=== PATIENT | female | born 1950 | race Caucasian/White ===

== ENCOUNTER → 2016-11-14 | Outpatient (CLI) | payer OTHER ==
[~2016-11-14] MED LIST: ATV/2 PO; ATV1 PO; GABA-113 PO; GLIP-171 PO; HYDR-5688 PO; MRPSR15 PO; PRN10125 PO; PYRI100T4 PO; RXC5 PO; SIMV40TA2 PO; TRAM-10 PO
--- NOTE | 2016-11-14 14:37 | DIAGNOSTIC IMAGING REPORT ---
LEFT KNEE MRI HISTORY: LT KNEE PAIN COMPARISON STUDY: Left knee 07/15/2016. TECHNIQUE: Multiplanar multisequence MRI of the left knee was performed according to standard department protocol without the use of contrast. FINDINGS: Menisci: There is a flap tear at the undersurface of the body of the medial meniscus. The tiny fragment appears to extend into the inferior meniscal gutter best seen on coronal sequence image 18. The lateral meniscus is intact. Ligaments: Thickening and increased signal within the ACL. However, the fibers appear intact. This favors mucoid degeneration. There is edema surrounding the ACL which could represent a small partial tear. However, this is considered less likely. The PCL, MCL, and LCL are intact. Extensor mechanism: The quadriceps tendon and patellar ligament are intact. Articular cartilage and bone: No fracture or dislocation. Focal full-thickness cartilage defect measuring 5 mm within the medial patellar facet. Mild thinning at the median ridge of the patella. Less than 50% thinning within the medial femoral condyle. Tiny marginal osteophytes at the medial compartment of the knee. Small amount of subchondral cystic change at the medial femoral condyle posteriorly. There are few small focal full-thickness cartilage defects within the medial femoral condyle posteriorly. A peripheral 1.1 cm T2 hyperintense lesion within the lateral femoral condyle. This is consistent with a benign cartilaginous lesion. Joint effusion: Small Soft tissues: No evidence for a popliteal cyst. IMPRESSION: 1. Small flap tear at the undersurface of the body of the medial meniscus. The small fragment extending into the inferior meniscal gutter. 2. Abnormal thickening and increased T2 signal within the ACL. However, the fibers appear intact. This favors mucoid degeneration. A partial tear could also have a similar appearance but is considered less likely. 3. Small joint effusion. 4. Mild osteoarthritis as described above. Electronically signed by: Artur Morris M.D. 11/14/2016 2:35 PM Dictated Date/Time: 11/14/2016 2:04 PM
== END | disposition home or self-care (01) ==
LOC: C.MRIBC 12:58
PROVIDERS: ATTEND Orthopaedic Surgery
DX: S83.207A Unspecified tear of unspecified meniscus, current injury, left knee, initial encounter (principal); X58.XXXA Exposure to other specified factors, initial encounter

== ENCOUNTER → 2016-11-19 | Day surgery (SDC) | payer OTHER ==
[2016-11-15 15:21] LABS: BASO % 0.5 %; BASO ABS # 0.03 K/uL (0-0.2); COMPLETE YES; EOS % 2.1 %; HEMATOCRIT 39.8 % (37-47); IG% 0.2 %; LYMPH % 34.5 %; LYMPH ABS # 1.99 K/uL (1.2-3.4); MEAN CELL VOLUME 90.5 fL (80-100); MEAN CORPUSCULAR HEMOGLOBIN 31.6 pg (25-34); MEAN CORPUSCULAR HGB CONC 34.9 g/dl (32-36); MEAN PLATELET VOLUME 9.6 fL (7.4-10.4); MONO % 6.6 %; NEUT % 56.1 %; PLATELET COUNT 199 K/uL (130-400); WHITE BLOOD COUNT 5.77 K/uL (4.8-10.8)
[2016-11-15 15:36] LABS: BLOOD UREA NITROGEN 14 mg/dl (7-18); BUN/CREATININE RATIO 15.3 (10-20); CALCIUM 9.9 mg/dl (8.5-10.1); CARBON DIOXIDE 30 mmol/L (21-32); CHLORIDE 102 mmol/L (98-107); CREATININE 0.92 mg/dl (0.60-1.20); GLUCOSE 282 mg/dl (70-99); POTASSIUM 3.7 mmol/L (3.5-5.1); SODIUM 137 mmol/L (136-145)
[2016-11-18 09:37] VITALS: Ht 157.5 cm; Wt 86.4 kg
[~2016-11-19] VITALS: Ht 157.5 cm; Wt 86.4 kg
[~2016-11-19] MED LIST changes: +ATROPINE SULFATE 0.1 MG/ML 5ML SYR IV PRN; -ATV1 PO; +BUPIVACAINE 0.5 % 5 MG/1 ML PF 10ML VIAL ONE; +CEFAZOLIN 1000MG/55 ML D5W IV SCH; +DEXAMETHASONE SOD INJ 4 MG/ML VIAL ONE; +EpHEDrine SULFATE INJ 50 MG/ML AMP IV PRN; +EpINEphrine INJ 1MG/ML AMP 1 MG/ML AMP ONE; +FENTANYL CITRATE INJ 50 MCG/1 ML 2 ML VIAL ONE; -HYDR-5688 PO; +KETOROLAC TROMETHAMINE 30 MG/ML VIAL ONE; +LACTATED RINGER'S 1000ML 1,000 ML IV SCH; +LIDOCAINE HCL 2% 2 ML VIAL (20MG/ML) ONE; +MIDAZOLAM HCL 1 MG/ML 2ML VIAL ONE; -MRPSR15 PO; +ONDANSETRON INJ 2 MG/ML 2 ML VIAL IV PRN; +ONDANSETRON INJ 2 MG/ML 2 ML VIAL ONE; +OXYCODONE/ACETAMINOPHEN 5-325 TAB PO PRN; +PROPOFOL IV EMULSION 10 MG/ML 20 ML VIAL IV ONE; +ROPIVACAINE 0.5% 5 MG/ML 30 ML VIAL ONE; -RXC5 PO; +SODIUM CHLORIDE 0.9% 1000ML 1,000 ML IV SCH
--- NOTE | 2016-11-19 08:04 | History & Physical Bridge - SC ---
H&P Re-Evaluation Bridge Note: I have examined the patient, reviewed the History & Physical and in the interval since the performance of the History & Physical I have noted the following changes of clinical significance: No changes noted
--- NOTE | 2016-11-19 08:31 | [facility] Post Operative Brief Note ---
Immediate Operative Summary Operative Date Nov 19, 2016. Pre-Operative Diagnosis Left Knee Medial Meniscus Tear Post-Operative Diagnosis Same, DJD MFC Procedure(s) Performed Left Knee Arthroscopy With Partial Medial Meniscectomy Surgeon Dr Tsang Offset Press Operator Surgeon(s) Ant Khalil PA-C Estimated Blood Loss 0ml Findings ABOVE Specimens None Anesthesia LMA Complication(s) None Disposition Recovery Room / PACU
--- NOTE | 2016-11-19 08:44 | Discharge Instructions-SurgCtr ---
Discharge Instructions Date of Service Nov 19, 2016. Visit Reason for Visit: Lt Knee Current Tear Medial Cartilage &/Or Meniscu Discharge Discharge Diagnosis / Problem: SAME ABOVE Discharge Goals Goal(s): Decrease discomfort, Improve function Activity Recommendations Activity Limitations: as noted below Lifting Limitations: gradually increase as tolerated Exercise/Sports Limitations: until after follow-up appointment Shower/Bathe: tomorrow Weightbearing Status: Left weightbearing (as tolerated) Anesthesia . Post Anesthesia Instructions: If you have had General Anesthesia or IV Sedation: * Do not drive today. * Resume driving when surgeon permits. * Do not make important decisions or sign legal documents today. * Call surgeon for: 1. Temperature elevations greater than 101 degrees F. 2. Uncontrollable pain. 3. Excessive bleeding. 4. Persistent nausea and vomiting. 5. Medication intolerance (nausea, vomiting or rash). * For nausea and vomiting use only clear liquids such as: tea, soda, bouillon until nausea subsides, then gradually increase diet as tolerated. * If you have any concerns or questions, call your surgeon's office. If physician is unavailable and it is an emergency, call 911 or go to the nearest emergency room. . Instructions / Follow-Up Instructions / Follow-Up MEDICATIONS: * Resume previous medications unless instructed otherwise by your surgeon. * Always take pain medication on a full stomach or with food to avoid upset stomach. * Do not drink alcohol or drive while taking narcotics. * Ibuprofen or Tylenol may be taken if narcotic not needed. SPECIAL CARE INSTRUCTIONS: __ None _X_ Keep extremity elevated and iced x 48 hours; apply ice 20-30 minutes 8-10 times/day. May remove at night. __ Crutches __ May discard when able __ Brace/Post-op shoe __ 24 hrs/day __ Remove at night _X_ Dressing __ Maintain until seen in office, may shower with plastic over site _X_ Remove dressings in 24-48 hours and then may shower _X_ Cover incisions with band-aids after showering __ Do not remove steri-strips Call physician if chills or temperature rises above 102 degrees or pain unrelieved by prescribed pain medications. Office [phone] Diet Recommendations Home Diet: resume previous diet Procedures Procedures Performed: Left Knee Arthroscopy With Partial Medial Meniscectomy Pending Studies Studies pending at discharge: no Medical Emergencies . Who to Call and When: Medical Emergencies: If at any time you feel your situation is an emergency, please call 911 immediately. . Non-Emergent Contact Non-Emergency issues call your: Primary Care Provider . . "Provider Documentation" section prepared by Triston Khalil. .
--- NOTE | 2016-11-19 08:54 | OPERATIVE REPORT ---
DATE OF OPERATION: 11/19/2016 PREOPERATIVE DIAGNOSIS: Medial meniscus tear left knee. POSTOPERATIVE DIAGNOSES: 1. Medial meniscus, left knee. 2. 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 PROCEDURE: 1. Left knee arthroscopy. 2. Partial medial meniscectomy. 3. Debridement medial femoral condyle. SURGEON: Dr. Tsang. IP COUNSEL: Triston Khalil PA-C. ANESTHESIOLOGIST: Dr. Laurent ANESTHESIA: LMA. DRAINS: None. COMPLICATIONS: None. CONDITION: The patient tolerated the procedure well and returned to the recovery room in apparent satisfactory condition. INDICATIONS FOR SURGERY: Elsy is a 66-year-old female who has had increasing pain and discomfort, left knee consistent with medial meniscus tear. Went over treatment options. She has failed conservative care and elected to go ahead and proceed with surgery. Procedure, expected outcomes and side effects were all explained in detail. PROCEDURE: The patient was taken to the OR at which time she was placed supine on the operating table, put to sleep by the anesthesia department. Examination of left knee was performed. Ligamentous munoz stable. Went ahead and prepped and draped in usual sterile fashion. We began arthroscopic examination in the anteromedial and anterolateral portals. Immediately found a flap tear of the posterior horn of the medial meniscus. We came in with upbiting scissors and full range resector and trimmed it back to a stable rim. The ACL and lateral compartment were in good shape. The patellofemoral joint looked good. She had a lesion on the femoral condyle on the very, very extension surface had grade 3 lesion. Debridement was done here it was probably about 2-3 mm x 3 mm in size. This was debrided. Remaining examination of the knee joint was unremarkable. The knee was copiously irrigated. All cannulas were removed. 30 mL ropivacaine with 10 mg of Toradol, 1 mL epinephrine was placed in the knee joint. Placed a sterile dressing of Xeroform, 4 x 4, ABD, Sof-Rol, and Bernabe bandage and returned back to recovery room in apparent satisfactory condition. SURGICAL FINDINGS: 1. A posterior horn medial meniscus tear. 2. Chondral lesion on the very front extension surface about 3 x 3 mm in size, grade 3 lesion. I attest to the content of the Intraoperative Record and any orders documented therein. Any exception s are noted below.
[2016-11-19] MEDS: FENTANYL CITRATE INJ 50 MCG/1 ML 2 ML VIAL IV PRN ×3 (09:19→09:37)
--- NOTE | 2016-11-19 09:37 | Anesthesia Progress Nt - [facility] ---
Anesthesia Post Op Note Date & Time Nov 19, 2016 at 09:37 Vital Signs Pain Intensity: 2 Vital Signs Past 12 Hours Date Time Temp Pulse Resp B/P (MAP) Pulse Ox O2 Delivery O2 Flow Rate FiO2 11/19/16 08:45 96 15 11/19/16 08:45 96 15 134/86 98 11/19/16 08:42 36.4 92 16 151/81 98 Mask 6 11/19/16 08:40 102 151/81 98 11/19/16 08:40 102 11/19/16 07:08 36.7 90 16 153/84 (107) 97 Room Air Notes Mental Status: alert / awake / arousable, participated in evaluation Pt Amnestic to Procedure: Yes Nausea / Vomiting: adequately controlled Pain: adequately controlled Airway Patency, RR, SpO2: stable & adequate BP & HR: stable & adequate Hydration State: stable & adequate Anesthetic Complications: no major complications apparent
[2016-11-19 09:53] VITALS: TEMP 36.7
[2016-11-19 10:19] VITALS: BP 127/79; PULSE 83; O2SAT 97
== END | disposition home or self-care (01) ==
LOC: X.SURG 06:46
PROVIDERS: ATTEND Orthopaedic Surgery
DX: S83.242A Other tear of medial meniscus, current injury, left knee, initial encounter (principal); M25.862 Other specified joint disorders, left knee; E11.9 Type 2 diabetes mellitus without complications; Z82.3 Family history of stroke; I10 Essential (primary) hypertension; X58.XXXA Exposure to other specified factors, initial encounter

== ENCOUNTER 2024-09-23 15:18 | Inpatient (IN) ==
--- NOTE | 2024-09-23 16:02 | Emergency Department Note ---
Impression & Plan Urinary tract infection, Complicated UTI (urinary tract infection), Pleural effusion, Generalized weakness ED Provider Note NAME: MIRA VITAL AGE: 74 SEX: F : 1950 ARRIVES VIA: Walk-In INFORMANT: Patient, ED PROVIDER(S): Scott Oh DO CHIEF COMPLAINT: Weakness HPI: The patient is a 74-year-old female who presented to the emergency department for an evaluation of generalized weakness. The patient spent the last month being treated for sepsis. She was diagnosed with sepsis in [facility] when she was her vacationing. She had positive cultures for Proteus. She was treated with ertapenem. She did finish her course of antibiotics. She is currently on no antibiotics. The patient states today she started feeling worse started having generalized weakness. She denies having any headache. She denies having any abdominal pain or chest pain. She denies having any lower extremity swelling or pain. She denies any weakness. She has had decreased urine output. She is also suffered from acute kidney injury when she was in the hospital. She also spent some time at her daughters in [place] while she was recovering after the [facility] visit but she has been back in [place] since last week. ROS: See above HPI for pertinent positives & negatives. A total of 10 systems reviewed and were otherwise negative. PAST MEDICAL HISTORY: See Below PAST SURGICAL HISTORY: See Below FAMILY HISTORY: See Below SOCIAL HISTORY: See Below HOME MEDICATIONS: See Below ALLERGIES: See Below VITALS: See Below PHYSICAL EXAMINATION: GENERAL: Patient is awake alert in no acute distress patient is resting comfortably and showing no signs of anxiety EYES: The conjunctivae are clear. The pupils are round and reactive. EARS, NOSE, MOUTH AND THROAT: The nose is without any evidence of any deformity. NECK: The neck is nontender and supple. RESPIRATORY: Normal respiratory effort is noted there is no evidence of wheezing rhonchi or rales CARDIOVASCULAR: Regular rate and rhythm noted there no murmurs rubs or gallops normal S1 normal S2. GASTROINTESTINAL: The abdomen is soft. Abdomen is nontender. MUSCULOSKELETAL/EXTREMITIES: There is no evidence of gross deformity full range of motion is noted in the hips and shoulders. SKIN: There is no obvious evidence of any rash. There are no petechiae, pallor or cyanosis noted. NEUROLOGIC: Patient is awake alert and oriented x3. Strength is symmetric. The patient is able to hold each leg off the bed for greater than 5 seconds. MEDICAL DECISION MAKING: The patient is a 74-year-old female who presented to the emergency department for an evaluation of generalized weakness. The patient was recently diagnosed with sepsis. The patient was on IV antibiotics for Proteus infection up until 3 days ago. The patient presents to our emergency department today because of not feeling well. I discussed the patient's laboratory and radiographic studies with her. Laboratory studies as well as vital signs were reassuring but the patient was found have signs of urinary tract infection. She also has an abnormal chest x-ray. Given her recent episode of sepsis I do not feel the patient would be a good candidate for outpatient management. For this reason I discussed her condition with the on-call [facility] hospitalist. I did discuss the patient's laboratory and radiographic studies with her daughter as well. Triage Nursing notes reviewed. Prior medical records reviewed Vital Signs: reviewed and remarkable for no significant abnormalities Differential diagnosis: Infection, dehydration, metabolic abnormality, hypo/hyperglycemia, electrolyte disturbance, anemia, hypoxia, cardiac sources, intracerebral event, toxicologic, neurologic, as well as other pathologies. ER treatment provided: See below Diagnostics interpreted by me: ECG: EKG was obtained in the emergency department. My interpretation is normal sinus rhythm at 73 bpm. There was no ectopy. Nonspecific T wave abnormalities were noted. QTc was 414 ms. Cardiac Monitoring: An order was placed for continuous cardiac monitoring. The monitor shows a rate of 66 bpm with sinus rhythm. Laboratory studies: As stated above and show below. Imaging studies: See below. Radiographic imaging was reviewed by myself Consultation(s): I discussed this case with Dr. Kasper who is on-call for the [facility] group. Past Med/Surg History Problem List (Updated 09/23/24 @ 22:07 by Scott Oh DO) Generalized weakness (Acute) Pleural effusion (Acute) Urinary tract infection (Acute) Complicated UTI (urinary tract infection) (Acute) Lumbar stenosis with neurogenic claudication Social History Smoking Status: Never smoker Preferred Language: Barbadian Feels Safe at Home: Yes Allergies Allergies Allergy/AdvReac Type Severity Reaction Status Date / Time metformin AdvReac Intermediate Diarrhea Verified 09/23/24 18:09 Home Meds Home Medications Medication Instructions Recorded Confirmed insulin glargine 100 unit/mL (3 15 unit subcut HS 09/23/24 09/23/24 mL) subcutaneous pen (Lantus Solostar U-100 Insulin) scopolamine base 1 mg over 3 days 1 mg transdermal .Q3DAYS PRN 09/23/24 09/23/24 transdermal patch TRAVELING simvastatin 40 mg tablet 40 mg PO HS 09/23/24 09/23/24 trazodone 50 mg tablet 50 mg PO HS 09/23/24 09/23/24 Results & Data (ED) Vital Signs Vital Signs - 24 hr 09/23/24 15:20 09/23/24 16:30 09/23/24 16:48 Temperature 36.5 C Temperature Source Oral Pulse Rate 79 Pulse Rate [Apical] 74 Pulse Rate from SpO2 Sensor Respiratory Rate 20 18 Respiratory Effort / Characteristics Non-Labored Spontaneous Non-Labored Spontaneous Non-Labored Spontaneous Respiratory Depth Normal Normal Normal Respiratory Pattern Regular Blood Pressure 165/69 H Blood Pressure [Right Arm] 162/88 H Blood Pressure Mean 101 Blood Pressure Mean [Right Arm] 112 Pulse Oximetry 98 99 Oxygen Delivery Method Room Air Room Air Sepsis Recent Fever Within 48 Hours No Sepsis New/Unexplained Change in Mental Status N/A Sepsis Action Taken by Nursing No Action Required 09/23/24 17:45 09/23/24 17:51 09/23/24 18:00 Temperature Temperature Source Pulse Rate 70 61 Pulse Rate [Apical] Pulse Rate from SpO2 Sensor Respiratory Rate 18 Respiratory Effort / Characteristics Respiratory Depth Respiratory Pattern Blood Pressure 162/93 H 162/88 H Blood Pressure [Right Arm] Blood Pressure Mean 112 143 Blood Pressure Mean [Right Arm] Pulse Oximetry 97 Oxygen Delivery Method Sepsis Recent Fever Within 48 Hours Sepsis New/Unexplained Change in Mental Status Sepsis Action Taken by Nursing 09/23/24 18:12 09/23/24 19:00 Temperature Temperature Source Pulse Rate 66 69 Pulse Rate [Apical] Pulse Rate from SpO2 Sensor 66 Respiratory Rate 17 20 Respiratory Effort / Characteristics Respiratory Depth Respiratory Pattern Blood Pressure 158/80 H Blood Pressure [Right Arm] Blood Pressure Mean 93 Blood Pressure Mean [Right Arm] Pulse Oximetry 97 96 Oxygen Delivery Method Sepsis Recent Fever Within 48 Hours Sepsis New/Unexplained Change in Mental Status Sepsis Action Taken by Usp Medications Current Medication List: was personally reviewed by me Laboratory Data Attestation: I reviewed the patient's lab results. 09/23/24 15:38 09/23/24 15:38 Lab Results 09/23/24 09/23/24 Range/Units 15:38 16:53 WBC 9.65 (4.8-10.8) K/ul RBC 3.34 L (4.20-5.40) M/uL Hgb 9.5 L (12.0-16.0) g/dl Hct 30.4 L (37.0-47.0) % MCV 91.0 (80.0-100.0) fL MCH 28.4 (25.0-34.0) pg MCHC 31.3 L (32.0-36.0) g/dL RDW Std Deviation 46.2 (36.4-46.3) fL RDW Coeff of Marek 14.0 (11.5-14.5) % Plt Count 243 (130-400) K/uL MPV 9.4 (9.4-12.4) fL Immature Gran % (Auto) 0.5 % Neut % (Auto) 88.3 % Lymph % (Auto) 8.1 % Edgar % (Auto) 2.7 % Eos % (Auto) 0.0 % Baso % (Auto) 0.4 % Neut # (Auto) 8.52 H (1.40-6.50) K/uL Lymph # (Auto) 0.78 L (1.20-3.40) K/uL Edgar # (Auto) 0.26 (0.11-0.59) K/uL Eos # (Auto) 0.00 (0.00-0.50) K/uL Baso # (Auto) 0.04 (0.00-0.20) K/uL Immature Gran # (Auto) 0.05 (0.01-0.20) K/uL PT 11.2 (9.0-12.0) Seconds INR 1.0 (0.9-1.1) APTT 26 (21-31) Seconds PTT Ratio 1.0 VBG pH 7.36 (7.36-7.41) VBG pCO2 43 (38-50) mmHg VBG pO2 25 mmHg VBG HCO3 24 mmol/L VBG O2 Saturation < 60.0 % VBG Base Excess -1.3 mEq/L Sodium 142 (136-145) mmol/L Potassium 3.9 (3.5-5.1) mmol/L Chloride 111 H (98-107) mmol/L Carbon Dioxide 25 (21-32) mmol/L Anion Gap 6 (3-11) BUN 16 (6-23) mg/dl Creatinine 1.23 H (0.6-1.2) mg/dl Est Cr Clr Drug Dosing 35.4 ml/min eGFR 46.11 BUN/Creatinine Ratio 13.0 (10-20) Glucose 77 (70-99(Fasting)) mg/dl Lactate 0.9 (0.4-2.0) mmol/L Calcium 9.2 (8.6-10.3) mg/dl Magnesium 2.1 (1.7-2.4) mg/dl Total Bilirubin 0.5 (0.2-1.0) mg/dl Direct Bilirubin 0.1 (0-0.2) mg/dl AST 17 (13-39) U/L ALT 6 L (7-52) U/L Alkaline Phosphatase 87 (34-104) U/L Troponin I High Sens 7.6 (0-14) pg/ml Total Protein 7.5 (6.0-8.3) gm/dl Albumin 3.2 L (3.4-5.0) gm/dl Procalcitonin 0.08 (0-0.5) ng/ml Administered Medications Discontinued Medications Sodium Chloride (Nss) 1,000 mls @ 999 mls/hr IV .Q1H1M ONE Stop: 09/23/24 16:57 Last Infusion: 09/23/24 18:05 Dose: Infused Documented By: Admin: 09/23/24 16:22 Dose: 999 mls/hr Documented By: GARFIELD Ertapenem (Invanz 1000mg) 1,000 mg in 10 mls @ 2 mls/min IV NOW STA Stop: 09/23/24 18:50 Last Admin: 09/23/24 19:33 Dose: 2 mls/min Documented By: CASSANDRA Imaging Data Attestation: I personally reviewed and interpreted this imaging study as follows: My Impression: 1 view chest x-ray was obtained in the emergency department. My interpretation is possible infiltrate at the right base, final report below. CT the brain was obtained in the emergency department. My interpretation is no intracranial hemorrhage or mass effect, final report below. Radiologist's Impression: Chest X-Ray 09/23/24 15:57 Chest radiograph, one view History: Sepsis Comparison: 08/13/2015 Findings: Single AP view of the chest performed. Small bilateral pleural effusions. Streaky bibasilar opacity favoring atelectasis. There is also retrocardiac opacity. No pneumothorax. The cardiomediastinal silhouette is within normal limits. Increased prominence of the pulmonary vascularity. No evidence for lymphadenopathy. No visualized bony or soft tissue abnormality. Impression: Small pleural effusion are new from prior. Retrocardiac atelectasis versus consolidation. Electronically signed by Dat Huggins 09-23-2024 5:[address] 09/23/24 15:57 CT HEAD: HISTORY: Headaches TECHNIQUE: Noncontrast CT examination of the head is performed. Coronal and sagittal reformats were created. COMPARISON: None FINDINGS: There is no evidence of intracranial hemorrhage, focal mass effect or midline shift. No fluid collection is identified. The ventricular system is midline and symmetric. No evidence of acute major vascular territory infarction. Age-related involutional changes of the brain and chronic white matter ischemic changes. Partially empty sella. No calvarial fracture is identified. The paranasal sinuses and mastoids are well aerated. IMPRESSION: No acute intracranial process identified. Chronic findings as above. Electronically signed by Lamont Medley 09-23-2024 5:57 PM Discharge Plan Visit Data Chief Complaint: Weakness Stated Complaint: UNWELL,WEAK,NIGHT SWEATS,FALL THIS MORNING ED Provider: Scott Oh Discharge Problem: Urinary tract infection, Complicated UTI (urinary tract infection), Pleural effusion, Generalized weakness Patient Disposition: Being Evaluated by Hospitalist Condition: Fair Discharge Instructions Interventions: ED Discharge Assessment Last Done: 09/23/24 20:39
[2024-09-23 16:17] LABS: Hematocrit (blood only) 30.4 % (37.0-47.0); Hemoglobin 9.5 g/dl (12.0-16.0); Immature Granulocytes # (auto) 0.05 K/uL (0.01-0.20); Immature Granulocytes % (auto) 0.5 %; Mean Corpuscular Hemoglobin 28.4 pg (25.0-34.0); Mean Corpuscular Volume 91.0 fL (80.0-100.0); Platelet Count 243 K/uL (130-400); RDW Standard Deviation 46.2 fL (36.4-46.3); Red Blood Count 3.34 M/uL (4.20-5.40); White Blood Count 9.65 K/ul (4.8-10.8)
[2024-09-23] MEDS: SODIUM CHLORIDE 0.9% 1,000 ML IV ONE (16:22)
[2024-09-23 16:34] LABS: Alanine Aminotransferase 6.0 U/L (7-52); Alkaline Phosphatase 87.0 U/L (34-104); Anion Gap 6.0 (3-11); Bilirubin,Total 0.5 mg/dl (0.2-1.0); Blood Urea Nitrogen 16.0 mg/dl (6-23); Calcium 9.2 mg/dl (8.6-10.3); Carbon Dioxide 25.0 mmol/L (21-32); Chloride 111.0 mmol/L (98-107); Creatinine Clr Calc Pharmacy 35.4 ml/min; Glucose 77.0 mg/dl (70-99(Fasting)); Magnesium 2.1 mg/dl (1.7-2.4); Potassium 3.9 mmol/L (3.5-5.1); Sodium 142.0 mmol/L (136-145); Total Protein 7.5 gm/dl (6.0-8.3)
[2024-09-23 16:44] LABS: INR 1.0 (0.9-1.1); Partial Thromboplastin Time 26 Seconds (21-31); Prothrombin Time 11.2 Seconds (9.0-12.0)
[2024-09-23 17:03] LABS: Base Excess VBG -1.3 mEq/L; HCO3 VBG 24 mmol/L; Oxygen Saturation VBG < 60.0 %; PCO2 VBG 43 mmHg (38-50); PO2 VBG 25 mmHg; pH VBG 7.36 (7.36-7.41)
--- NOTE | 2024-09-23 17:17 | XRay Report ---
Chest radiograph, one view History: Sepsis Comparison: 08/13/2015 Findings: Single AP view of the chest performed. Small bilateral pleural effusions. Streaky bibasilar opacity favoring atelectasis. There is also retrocardiac opacity. No pneumothorax. The cardiomediastinal silhouette is within normal limits. Increased prominence of the pulmonary vascularity. No evidence for lymphadenopathy. No visualized bony or soft tissue abnormality. Impression: Small pleural effusion are new from prior. Retrocardiac atelectasis versus consolidation. Electronically signed by Dat Huggins 09-23-2024 5:17 PM
--- NOTE | 2024-09-23 17:57 | CT Scan Report ---
CT HEAD: HISTORY: Headaches TECHNIQUE: Noncontrast CT examination of the head is performed. Coronal and sagittal reformats were created. COMPARISON: None FINDINGS: There is no evidence of intracranial hemorrhage, focal mass effect or midline shift. No fluid collection is identified. The ventricular system is midline and symmetric. No evidence of acute major vascular territory infarction. Age-related involutional changes of the brain and chronic white matter ischemic changes. Partially empty sella. No calvarial fracture is identified. The paranasal sinuses and mastoids are well aerated. IMPRESSION: No acute intracranial process identified. Chronic findings as above. Electronically signed by Lamont Medley 09-23-2024 5:57 PM
[2024-09-23 18:33] LABS: Appearance Urine Turbid (Clear); Bacteria Urine Automated None Seen (None Seen); Glucose Urine UA Negative (Negative); WBC Urine Automated >50 /hpf (0-5)
[2024-09-23] MEDS: ERTAPENEM 1000MG 1,000 MG/10 ML SYR IV STA (19:33)
[2024-09-23] MEDS ORDERED: LABETALOL HCL IV 5 MG/ML 20ML IV PRN (19:42)
--- NOTE | 2024-09-23 19:43 | History & Physical Report ---
Date of Service September 23, 2024 Assessment & Plan (1) Complicated UTI (urinary tract infection): Plan Progressive weakness Rule out blood infection Complicated UTI Patient was recently admitted for bacteremia and UTI, presents with progressive weakness since completion of antibiotic therapy. Patient reports night sweats. UA suggestive of UTI,CXR suggestive of bilateral pleural effusion and consolidation. CT head with no acute finding. Follow admitting blood and urine culture. Continue ertapenem. Add probiotic. Will get BNP, echo to rule out endocarditis if blood culture is positive, we will do CT chest to characterize bilateral pleural effusion. Monitor labs, continue with telemetry. T2DM: Sliding scale insulin. Dyslipidemia: Continue home simvastatin Insomnia: Continue home trazodone Hypertension: Her lisinopril hydrochlorothiazide was recently stopped likely due to low blood pressure from sepsis during her last hospitalization at [place]. will continue with as needed blood pressure medication for now, if blood pressure continues to be elevated, she needs to be started on long-term BP meds. DVT prophylaxis: Heparin subcu Full code History of Present Illness Chief Complaint: Progressive weakness Primary Care Provider: Jackie Shine DO 74-year-old lady with PMH of T2DM, HLD, CIERA, HTN presents to the ED with complaint of progressive weakness since last 5 to 6 days. Of note, she was recently vacationing in [place] where she ended up being admitted in the hospital end of July and noted to have Proteus mirabilis infection in the urine and blood, was started on Rocephin, patient was not improving much, later on culture grew Klebsiella and she was put on ertapenem. She completed ertapenem course about 5 to 6 days ago. After completion of the antibiotic course, she started feeling weakness which was progressively worsening, she started having night sweats and feeling not right. She denies fever though, denies pain and burning while passing urine, denies nausea/vomiting/diarrhea/belly pain/sore throat/cough/Shortness of breath/skin rash or wound. She reports appetite slightly down. She also states that her ankles/feet are swollen since admission at [place]. Her lisinopril HCTZ was dc'd after that admission. Patient denies smoking/using alcohol/recreational drugs. Medications reviewed with the patient at bedside. Full code Plan of care discussed with the patient in detail at bedside. Allergies Allergy/AdvReac Type Severity Reaction Status Date / Time metformin AdvReac Intermediate Diarrhea Verified 09/23/24 18:09 Home Medications Medication Instructions Recorded Confirmed Type insulin glargine 100 unit/mL (3 15 unit subcut HS 09/23/24 09/23/24 History mL) subcutaneous pen (Lantus Solostar U-100 Insulin) scopolamine base 1 mg over 3 days 1 mg transdermal .Q3DAYS PRN 09/23/24 09/23/24 History transdermal patch TRAVELING simvastatin 40 mg tablet 40 mg PO HS 09/23/24 09/23/24 History trazodone 50 mg tablet 50 mg PO HS 09/23/24 09/23/24 History Past Med/Surg History Problem List Complicated UTI (urinary tract infection) (Acute) Lumbar stenosis with neurogenic claudication Social History Smoking Status: Never smoker Preferred Language: Nepali Feels Safe at Home: Yes Review of Systems Review of Systems: negative otherwise mentioned in HPI. Physical Exam Physical Exam: GENERAL: Alert and oriented x3. NAD, on RA. HEENT: No pallor, no icterus. Pupils equal, round and reactive to light. Oral mucosa moist. NECK: No JVD, no neck masses. HEART: S1 and S2 heard. Regular rate and rhythm. No murmur, no gallop. RESPIRATORY SYSTEM: Normal AP diameter. No accessory muscle use. No wheezing, no crackles. ABDOMEN: Soft, bowel sounds present, nontender, no distention. CENTRAL NERVOUS SYSTEM: No facial droop. Speech is clear. Obeys simple commands. Moves extremities. EXTREMITIES: No edema, no erythema seen. 1+ ble ankle edema. Results & Data Results & Data Vital Signs (Past 12 Hours) Vital Signs Temp Pulse Pulse Resp BP BP Pulse Ox 09/23/24 18:12 66 17 97 09/23/24 18:00 162/88 H 09/23/24 17:51 61 09/23/24 17:45 70 18 162/93 H 97 09/23/24 16:30 74 18 162/88 H 99 09/23/24 15:20 36.5 C 79 20 165/69 H 98 O2 Del Method 09/23/24 18:12 09/23/24 18:00 06/26/25 17:51 09/23/24 17:45 09/23/24 16:30 Room Air 09/23/24 15:20 Room Air Code Status & VTE Plan VTE Prophylaxis Plan VTE Prophylaxis will be ordered: Yes
--- NOTE | 2024-09-23 20:42 | CT Scan Report ---
Exam(s): CT CHEST Without Contrast EXAM: CT Chest Without Intravenous Contrast CLINICAL HISTORY: Reason for exam: pna eval. TECHNIQUE: Axial computed tomography images of the chest without intravenous contrast. CTDI is 16.63 mGy and DLP is 536.98 mGy-cm. Automated exposure control was utilized for the study. A dose lowering technique was utilized adhering to the principles of ALARA. COMPARISON: None FINDINGS: Lungs: Dependent atelectasis bilaterally. Patchy densities in right- pxdbirs-atep-wscg upper lobes may represent infectious/inflammatory process. Calcified granuloma in the right lower lobe. No mass. Pleural space: Moderate bilateral pleural effusions. No pneumothorax. Heart: Trace pericardial fluid. No cardiomegaly. No significant coronary artery calcifications. Mediastinum: Calcified mediastinal and right hilar lymph nodes. Bones/joints: Degenerative changes of the spine. No acute fracture. Soft tissues: Body wall edema. Vasculature: Unremarkable. No thoracic aortic aneurysm. Lymph nodes: See above. Spleen: Calcified granuloma in the spleen. IMPRESSION: 1. Dependent atelectasis bilaterally. Patchy densities in right-greater- than-left upper lobes may represent infectious/inflammatory process. 2. Moderate bilateral pleural effusions. Electronically signed by: Messi Hannah M.D. 09/23/24 20:40 PM
[2024-09-23] MEDS ORDERED: GLUCOSE 40% GEL 15 GM TUBE PO PRN (21:00)
[2024-09-23] MEDS ORDERED: GLUCOSE 10 TAB/TUBE PO PRN (21:00)
[2024-09-23] MEDS ORDERED: PHARMACY GLYCEMIC MGMT CONSULT PRN (21:00)
[2024-09-23] MEDS ORDERED: GLUCAGON FOR INJ 1 MG VIAL SQ PRN (21:00)
[2024-09-23] MEDS ORDERED: CARBOHYDRATES FOR HYPOGLYCEMIA PO PRN (21:00)
[2024-09-23] MEDS: INSULIN ASPART PER UNIT CHARGE SC SCH (22:09)
[2024-09-23] MEDS: SIMVASTATIN 40 MG TAB PO SCH (22:18)
[2024-09-23] MEDS: HEPARIN SOD 5,000 UNIT/0.5 ML VIAL SQ SCH (22:30)
[2024-09-23] MEDS: LANTUS PER UNIT CHARGE SC SCH (22:31)
[2024-09-24 06:28] LABS: Hematocrit (blood only) 26.5 % (37.0-47.0); Hemoglobin 8.3 g/dl (12.0-16.0); Mean Corpuscular Hemoglobin 28.5 pg (25.0-34.0); Mean Corpuscular Volume 91.1 fL (80.0-100.0); Platelet Count 227 K/uL (130-400); RDW Standard Deviation 47.2 fL (36.4-46.3); Red Blood Count 2.91 M/uL (4.20-5.40); White Blood Count 8.98 K/ul (4.8-10.8)
[2024-09-24] MEDS: DEXTROSE 50% 50 ML SYRINGE IV PRN (06:54)
[2024-09-24 07:00] LABS: Anion Gap 5.0 (3-11); Blood Urea Nitrogen 17.0 mg/dl (6-23); Calcium 8.4 mg/dl (8.6-10.3); Carbon Dioxide 24.0 mmol/L (21-32); Chloride 113.0 mmol/L (98-107); Creatinine Clr Calc Pharmacy 36.5 ml/min; Glucose 29.0 mg/dl (70-99(Fasting)); Potassium 3.8 mmol/L (3.5-5.1); Sodium 142.0 mmol/L (136-145)
[2024-09-24] MEDS: ADVANCED PROBIOTIC 625 MG CAPSULE PO SCH (09:17)
[2024-09-24] MEDS: FUROSEMIDE 40 MG/4 ML VIAL IV SCH (14:56)
--- NOTE | 2024-09-24 15:33 | Pharmacy Report ---
Pharmacy Glycemic Short Note 2 - Date of Service September 24, 2024 - Glycemic Short BSG Results (Last 24 hours): 09/23/24 09/23/24 09/24/24 15:38 21:16 05:39 Glucose 77 29 L* POC Glucose 76 09/24/24 09/24/24 09/24/24 06:49 07:11 11:17 Glucose POC Glucose 32 L* 105 H 82 OUTPATIENT ANTIDIABETIC REGIMEN: * Lantus 15 units SQ HS * HbA1c pending (09/25/24) ASSESSMENT: * Elsy is a 74 year old female admitted with weakness/UTI and a history fo insulin dependent type 2 diabetes mellitus. Pharmacy has been consulted to assist with glycemic management while inpatient. * BSGs below goal range on admission, home basal insulin dosage given overnight, severe hypoglycemia noted overnight (patient clammy, diaphoretic and shaky), treated with 25gm D50W, BSGs rebounded. Will hold basal insulin for now and add overnight checks to monitor for hypoglycemia. * NovoLog at a weight based stress of 2, unable to assess at this time since no insulin given and minimal PO intake. Looser goal range due to hypoglycemia PLAN FOR INPATIENT GLYCEMIC CONTROL: * Hold outpatient oral diabetes medications * Basal insulin * Hold * Bolus insulin * NovoLog per scale ACHS or Q6hrs while NPO * Goal Range: Low 120 mg/dL - High 160 mg/dL * Correction Factor: 35 mg/dL/unit * Nutritional / Prandial insulin per carb ratio of 1 unit per 11 grams CHO consumed
--- NOTE | 2024-09-24 15:52 | Hospitalist Progress Note ---
Date of Service September 24, 2024 Assessment & Plan (1) Complicated UTI (urinary tract infection): Plan Progressive weakness/deconditioning Rule out bacteremia Recent complicated UTI/sepsis Rule out urinary tract infection --Blood culture pending --Urine culture pending Empirically on IV ertapenem Monitor and adjust antibiotics as needed PT OT, fall precautions Check TSH, B12 level Bilateral pleural effusion Acute diastolic heart failure Likely multifactorial secondary to recent sepsis/IV fluids, discontinuation of HCTZ and diastolic heart failure --Chest CT: Dependent atelectasis bilaterally. Patchy densities in yuoyx-yftugvb-nhla-left upper lobes may represent infectious/inflammatory process. Moderate bilateral pleural effusions. -- Elevated BNP --ECHO: EF 60 to 65%. Grade 1 diastolic dysfunction. Small loculated anterior right lateral pericardial effusion. Findings do not suggest cardiac tamponade. Moderate size left pleural effusion --Monitor I's and O's, daily weight -- Continue IV Lasix 40 mg daily -- Monitor electrolytes, renal function, volume status -- Will need follow-up with cardiology as outpatient Saturating well on room air DM II Hypoglycemia Hold long-acting insulin Insulin sliding scale--adjust to minimize hypoglycemic episodes Glycemic pharmacist consulted Monitor blood glucose levels Check HbA1c Hypertension Previously on lisinopril, HCTZ which were discontinued on recent hospitalization secondary to hypotension, sepsis Monitor blood pressure off medications Consider to start on losartan if blood pressure persistently elevated Dyslipidemia: Continue home simvastatin Insomnia: Continue home trazodone DVT Px: Heparin SQ Code Status Full code Admission and Anticipated Discharge Date Admission Date: September 23, 2024 Subjective Patient is seen and examined at bedside States feeling tired and weak Also reports feeling cold/chills Had an hypoglycemic episode this morning associated with sweating Denies any chest pain, dyspnea, nausea, vomiting, abdominal pain, dysuria Review of Systems Review of Systems: All systems reviewed & are unremarkable except as noted in Subjective Physical Exam Physical Exam: Physical Exam: Vitals signs as noted above General Appearance:Moderately built and nourished, no apparent distress Head: normocephalic, Atraumatic Eyes: normal inspection, EOMI Neck: supple, Trachea midline Respiratory/Chest: Normal breath sounds, CTA, No accessory muscle use Cardiovascular: S1, S2, No murmur Abdomen/GI:Soft, Non tender, Bowel sounds present Extremities/Musculoskeletal:normal inspection, B/L LE edema Neurologic/Psych:AAOX3, grossly no focal neurological deficits Skin: normal color, warm Results & Data Results & Data Vital Signs (Past 12 Hours) Vital Signs Temp Pulse Pulse Resp BP Pulse Ox O2 Del Method 09/24/24 12:22 36.8 C 67 20 137/77 97 Room Air 09/24/24 07:53 78 09/24/24 07:44 Room Air 09/24/24 07:15 36.3 C L 72 17 147/78 H 98 Room Air Laboratory Results Short CBC 09/23/24 09/24/24 Range/Units 15:38 05:39 WBC 9.65 8.98 (4.8-10.8) K/ul Hgb 9.5 L 8.3 L (12.0-16.0) g/dl Hct 30.4 L 26.5 L (37.0-47.0) % Plt Count 243 227 (130-400) K/uL BMP 09/23/24 09/24/24 15:38 05:39 Sodium 142 142 Potassium 3.9 3.8 Chloride 111 H 113 H Carbon Dioxide 25 24 BUN 16 17 Creatinine 1.23 H 1.20 Glucose 77 29 L* Calcium 9.2 8.4 L Liver Function 09/23/24 Range/Units 15:38 Total Bilirubin 0.5 (0.2-1.0) mg/dl Direct Bilirubin 0.1 (0-0.2) mg/dl AST 17 (13-39) U/L ALT 6 L (7-52) U/L Alkaline Phosphatase 87 (34-104) U/L Albumin 3.2 L (3.4-5.0) gm/dl Urine 09/23/24 Range/Units Unknown Urine Color Dark Yellow Urine Appearance Turbid A (Clear) Urine pH 5.5 (4.5-7.5) Ur Specific [place] 1.026 (1.000-1.030) Urine Protein 2+ H (Negative) Urine Glucose (UA) Negative (Negative)
[2024-09-24] MEDS: ERTAPENEM 1000MG 1,000 MG/10 ML SYR IV SCH (17:48)
[2024-09-25] MEDS: INSULIN ASPART PER UNIT CHARGE SC SCH (00:16)
--- NOTE | 2024-09-25 07:09 | Electrocardiogram Report ---
Test Reason : Blood Pressure : */* mmHG Vent. Rate : 73 BPM Atrial Rate : 73 BPM P-R Int : 152 ms QRS Dur : 98 ms QT Int : 376 ms P-R-T Axes : 79 48 68 degrees QTcB Int : 414 ms Normal sinus rhythm Low voltage QRS Cannot rule out Anterior infarct , age undetermined Abnormal ECG When compared with ECG of 15-Nov-2016 14:22, QRS voltage has decreased Minimal criteria for Anterior infarct are now Present T wave inversion now evident in Anterior leads Confirmed by Tee De Los Santos ([id number]) on 09/25/2024 7:08:34 AM Referred By: REFERRED SELF Confirmed By: Tee De Los Santos
[2024-09-25 07:32] LABS: Hematocrit (blood only) 22.9 % (37.0-47.0); Hemoglobin 7.4 g/dl (12.0-16.0)
[2024-09-25 07:55] LABS: Anion Gap 4.0 (3-11); Blood Urea Nitrogen 18.0 mg/dl (6-23); Calcium 8.2 mg/dl (8.6-10.3); Carbon Dioxide 26.0 mmol/L (21-32); Chloride 110.0 mmol/L (98-107); Creatinine Clr Calc Pharmacy 28.5 ml/min; Glucose 83.0 mg/dl (70-99(Fasting)); Potassium 3.9 mmol/L (3.5-5.1); Sodium 140.0 mmol/L (136-145)
[2024-09-25 08:11] LABS: Thyroid Stimulating Hormone 2.452 uIu/ml (0.300-4.500)
[2024-09-25 09:59] LABS: Hemoglobin A1C 7.5 % (4.5-5.6)
[2024-09-25] MEDS: PANTOprazole 40 MG/10 ML SYR IV SCH (10:19)
[2024-09-25] MEDS: PNEUMOCOCCAL VACCINE (PCV20) 20-VAL CONJ-DIP CRM/PF 0.5 ML SYR IM ONE (12:05)
[2024-09-25] MEDS ORDERED: SODIUM CHLORIDE 0.9% 100 ML IV PRN (13:27)
[2024-09-25 13:46] LABS: Hematocrit (blood only) 23.8 % (37.0-47.0); Hemoglobin 7.6 g/dl (12.0-16.0)
[2024-09-25 14:03] LABS: Iron 31.0 mcg/dl (35-150); Transferrin 181.0 mg/dl (200-360)
[2024-09-25 14:23] LABS: Ferritin 111.2 ng/ml (8-388)
--- NOTE | 2024-09-25 15:17 | Hospitalist Progress Note ---
Date of Service September 25, 2024 Assessment & Plan (1) Complicated UTI (urinary tract infection): Plan Progressive weakness/deconditioning Rule out bacteremia Recent complicated UTI/sepsis Rule out urinary tract infection --Blood culture: Negative to date --Urine culture: Negative --Normal TSH Empirically received IV ertapenem Will discontinue antibiotics if cultures remain negative tomorrow Continue PT OT, fall precautions Bilateral pleural effusion Acute diastolic heart failure Likely multifactorial secondary to recent sepsis/IV fluids, discontinuation of HCTZ and diastolic heart failure --Chest CT: Dependent atelectasis bilaterally. Patchy densities in r ynbn-cqdiwtd-aiwk-left upper lobes may represent infectious/inflammatory process. Moderate bilateral pleural effusions. -- Elevated BNP --ECHO: EF 60 to 65%. Grade 1 diastolic dysfunction. Small loculated anterior right lateral pericardial effusion. Findings do not suggest cardiac tamponade. Moderate size left pleural effusion --Monitor I's and O's, daily weight -- Received IV Lasix -- Monitor electrolytes, renal function, volume status -- Consider to start on maintenance dose of oral Lasix --Saturating well on room air -- May need pulmonology evaluation --Recheck chest x-ray tomorrow Melena Likely upper GI bleed Normocytic anemia Avoid anticoagulation Monitor H&H and transfuse as needed Started on IV Protonix Will request GI evaluation Obtain FOBT, anemia workup including peripheral smear May need to follow up with hematology as outpatient CT abdomen pending DM II Intermittent hypoglycemia HbA1c 7.5 Hold long-acting insulin Insulin sliding scale--adjust to minimize hypoglycemic episodes Glycemic pharmacist consulted Monitor blood glucose levels Hypertension Previously on lisinopril, HCTZ which were discontinued on recent hospitalization secondary to hypotension, sepsis Monitor blood pressure off medications Consider to start on losartan if blood pressure persistently elevated Blood pressure stable Dyslipidemia: Continue home simvastatin Insomnia: Continue home trazodone DVT Px: Heparin SQ--held due to melena SCDs for now Code Status Full code Admission and Anticipated Discharge Date Admission Date: September 23, 2024 Subjective Patient is seen and examined at bedside Continues to feel tired and weak Admits to having episode of melena overnight Updated patient's daughter over the phone in detail Denies any other bleeding issues Also denies any chest pain, dyspnea, nausea, vomiting, abdominal pain, dysuria Review of Systems Review of Systems: All systems reviewed & are unremarkable except as noted in Subjective Physical Exam Physical Exam: Physical Exam: Vitals signs as noted above General Appearance:Moderately built and nourished, no apparent distress Head: normocephalic, Atraumatic Eyes: normal inspection, EOMI Neck: supple, Trachea midline Respiratory/Chest: Normal breath sounds, CTA, No accessory muscle use Cardiovascular: S1, S2, No murmur Abdomen/GI:Soft, Non tender, Bowel sounds present Extremities/Musculoskeletal:normal inspection, B/L LE edema Neurologic/Psych:AAOX3, grossly no focal neurological deficits Skin: normal color, warm Results & Data Results & Data Vital Signs (Past 12 Hours) Vital Signs Temp Pulse Pulse Resp BP Pulse Ox O2 Del Method 09/25/24 15:11 75 09/25/24 15:01 36.6 C 73 20 126/78 96 Room Air 09/25/24 10:45 36.6 C 70 20 131/77 94 Room Air 09/25/24 08:06 36.5 C 77 20 131/66 93 Room Air 09/25/24 08:00 69 09/25/24 03:51 36.6 C 66 18 131/74 95 Room Air Laboratory Results Short CBC 09/25/24 09/25/24 Range/Units 07:03 12:48 Hgb 7.4 L 7.6 L (12.0-16.0) g/dl Hct 22.9 L 23.8 L (37.0-47.0) % BMP 09/25/24 07:03 Sodium 140 Potassium 3.9 Chloride 110 H Carbon Dioxide 26 BUN 18 Creatinine 1.50 H D Glucose 83 Calcium 8.2 L
[2024-09-25] MEDS ORDERED: POLYETHYLENE (MIRALAX) 17 GM PACK PO PRN (17:10)
[2024-09-25] MEDS ORDERED: DOCUSATE SODIUM 100 MG CAP PO PRN (17:10)
--- NOTE | 2024-09-25 17:49 | CT Scan Report ---
CT ABDOMEN and PELVIS without INTRAVENOUS CONTRAST HISTORY: Abdominal pain TECHNIQUE: CT abdomen and pelvis without contrast. IV CONTRAST: None ENTERIC CONTRAST: None. COMPARISON: None FINDINGS: LOWER CHEST: Cardiomegaly. Small pericardial fluid. Coronary valvular calcifications of the heart. There are moderate pleural fluid bilaterally with subjacent atelectasis. Calcified thoracic lymph nodes. LIVER: No focal lesion identified in this noncontrast study. GALLBLADDER/BILIARY: The gallbladder is not well seen. This may be due to postcholecystectomy state versus underdistention of the gallbladder. No abnormal biliary dilatation. SPLEEN: Unremarkable. PANCREAS: Unremarkable. ADRENALS: Unremarkable. KIDNEYS: Right sided mild hydroureteronephrosis upstream to a 5 mm high density material within the proximal right ureter. Cortical atrophy and cortical cysts. PERITONEUM/RETROPERITONEUM. No lymphadenopathy by size criteria. No aortic aneurysm. Small pelvic fluid. GASTROINTESTINAL: No obstruction. Evaluation for active gastrointestinal bleed is limited in the absence of the intravenous contrast. Within this limitation, no definite blood products identified in the hollow viscus. Mildly hyperdense material within the gastric lumen may represent recently ingested material Extensive colonic diverticulosis without evidence of diverticulitis. REPRODUCTIVE: No suspicious pelvic mass identified. URINARY BLADDER: Unremarkable ABDOMINAL WALL mild anasarca. Small fat-containing umbilical hernia. BONES: Recent appearing traumatic fracture of the left 12th rib Posterior instrumented fusion of the lumbar spine with laminectomies. IMPRESSION: Evaluation for active gastrointestinal bleed is limited in the absence of the intravenous contrast. Within this limitation, no definite blood products are identified in the hollow viscus. Mildly hyperdense material within the gastric lumen may represent recently ingested material. Extensive colonic diverticulosis without evidence of diverticulitis. Right sided mild hydroureteronephrosis upstream to a 5 mm high density material within the proximal right ureter that may represent an obstructing stone. Cardiomegaly and moderate pleural fluids. Mild anasarca. These suggest volume overload/CHF Recent appearing traumatic fracture of the left 12th rib Electronically signed by Lamont Medley 09-25-2024 5:49 PM
[2024-09-25] MEDS: ERTAPENEM 500MG 500 MG/5 ML SYR IV ONE (17:53)
[2024-09-26 07:09] LABS: Hematocrit (blood only) 23.5 % (37.0-47.0); Hemoglobin 7.5 g/dl (12.0-16.0); Mean Corpuscular Hemoglobin 29.0 pg (25.0-34.0); Mean Corpuscular Volume 90.7 fL (80.0-100.0); Platelet Count 172 K/uL (130-400); RDW Standard Deviation 46.4 fL (36.4-46.3); Red Blood Count 2.59 M/uL (4.20-5.40); White Blood Count 6.74 K/ul (4.8-10.8)
[2024-09-26 07:25] LABS: Anion Gap 2.0 (3-11); Blood Urea Nitrogen 18.0 mg/dl (6-23); Calcium 8.4 mg/dl (8.6-10.3); Carbon Dioxide 27.0 mmol/L (21-32); Chloride 110.0 mmol/L (98-107); Creatinine Clr Calc Pharmacy 30.7 ml/min; Glucose 99.0 mg/dl (70-99(Fasting)); Potassium 4.2 mmol/L (3.5-5.1); Sodium 139.0 mmol/L (136-145)
--- NOTE | 2024-09-26 08:26 | XRay Report ---
EXAM: XR chest 1V portable CLINICAL HISTORY: pleural effusion TECHNIQUE: Radiograph of chest was acquired. COMPARISON: 09/23/2024 16:09:00 EKG TECH FINDINGS: Mild blunting of bilateral costophrenic angles with hazy pulmonary infiltrate in left lower zone Rest of the lungs are clear. The cardiomediastinal silhouette is within normal limits. No acute osseous abnormality. IMPRESSION: 1. Mild bilateral pleural effusion with hazy pulmonary infiltrate in left lower zone. Increased left lower zone opacity compared to previous radiograph. Electronically signed by Yvon Gilbert 09-26-2024 08:26 AM
--- NOTE | 2024-09-26 08:40 | Pulmonary Consultation ---
Date of Consultation September 26, 2024 Assessment & Plan (1) Pleural effusion: Plan Impression: 74-year-old female admitted with complicated UTI found to have bilateral pleural effusions with history of diastolic dysfunction and fluid resuscitation. She is asymptomatic. Recommendations: 1. Bilateral pleural effusions: Suspect related to resuscitation. She is asymptomatic. No indication for drainage. At this point time would recommend continue diuretics with attention to renal function and electrolytes. Can consider an outpatient follow-up chest x-ray in a few weeks, sooner should the patient have respiratory symptoms. Pulmonary will sign off at this point in time. Feel free to contact us with questions or concerns. History of Present Illness Attending Physician: Edwin Vargas MD History of Present Illness Asked by hospitalist to evaluate this patient with bilateral pleural effusions. History is obtained from discussion with the patient as well as review of electronic medical chart. The patient is a 74-year-old female who was admitted with complicated UTI sepsis. She received large volume resuscitation. CT of the abdomen pelvis demonstrated small bilateral pleural effusions. Pulmonary was consulted. The patient is asymptomatic from a respiratory standpoint. She specifically denies any shortness of breath, cough, or sputum production. No chest tightness. She been ambulatory. She is on room air. Allergies Allergy/AdvReac Type Severity Reaction Status Date / Time metformin AdvReac Intermediate Diarrhea Verified 09/23/24 18:09 Home Medications Medication Instructions Recorded Confirmed Type insulin glargine 100 unit/mL (3 15 unit subcut HS 09/23/24 09/23/24 History mL) subcutaneous pen (Lantus Solostar U-100 Insulin) scopolamine base 1 mg over 3 days 1 mg transdermal .Q3DAYS PRN 09/23/24 09/23/24 History transdermal patch TRAVELING simvastatin 40 mg tablet 40 mg PO HS 09/23/24 09/23/24 History trazodone 50 mg tablet 50 mg PO HS 09/23/24 09/23/24 History Patient History Social History Smoking Status: Never smoker Second Hand Exposure: No; Do You Dip or Chew Tobacco: No; Hx Alcohol Use: Yes Alcohol type: other Hx Substance Use: No Preferred Language: Korean Communication Ability: Effective Abrasive Grader Required: No Beliefs That Will Affect Care: None Current Living Situation: Spouse Current Living Situation Comment: Home Feels Safe at Home: Yes Assistive Devices: Walker and Other Review of Systems Review of Systems: All systems reviewed & are unremarkable except as noted in Subjective Physical Exam Constitutional: WD/WN, vitals as above Neck: trachea midline, no thyromegaly Respiratory: normal respiratory effort, lungs clear to auscultation Cardiovascular: RRR, no murmur, no edema Gastrointestinal (Abdomen): normal bowel sounds, soft, nontender, no hepatosplenomegaly Musculoskeletal: Extremities: extremities normal to inspection Skin: no rashes, warm and dry Neurologic: Nonfocal exam Lymphatic: no cervical lymphadenopathy Results & Data Results & Data Vital Signs (Past 12 Hours) Vital Signs Temp Pulse Pulse Resp BP Pulse Ox O2 Del Method 09/26/24 07:41 36.8 C 77 18 145/74 H 94 Room Air 09/26/24 03:31 36.6 C 67 18 118/73 95 Room Air 09/25/24 23:07 36.6 C 75 18 124/73 96 Room Air 09/25/24 22:03 69 Critical Care Results & Data Vital Signs (Past 12 Hours) Vital Signs Temp Pulse Pulse Resp BP Pulse Ox O2 Del Method 09/26/24 07:41 36.8 C 77 18 145/74 H 94 Room Air 09/26/24 03:31 36.6 C 67 18 118/73 95 Room Air 09/25/24 23:07 36.6 C 75 18 124/73 96 Room Air 09/25/24 22:03 69 Lab & Micro Results (Past 24 Hours) RBC 2.59 M/uL (4.20-5.40) L 09/26/24 WBC 6.74 K/ul (4.8-10.8) 09/26/24 Hgb 7.5 g/dl (12.0-16.0) L 09/26/24 Hct 23.5 % (37.0-47.0) L 09/26/24 MCV 90.7 fL (80.0-100.0) 09/26/24 MCH 29.0 pg (25.0-34.0) 09/26/24 MCHC 31.9 g/dL (32.0-36.0) L 09/26/24 RDW Standard Deviation 46.4 fL (36.4-46.3) H 09/26/24 RDW Coefficient of Variation 14.0 % (11.5-14.5) 09/26/24 Plt Count 172 K/uL (130-400) 09/26/24 MPV 9.3 fL (9.4-12.4) L 09/26/24 Na 139 mmol/L (136-145) 09/26/24 K 4.2 mmol/L (3.5-5.1) 09/26/24 Cl 110 mmol/L (98-107) H 09/26/24 CO2 27 mmol/L (21-32) 09/26/24 Anion Gap 2 (3-11) L 09/26/24 BUN 18 mg/dl (6-23) 09/26/24 Creatinine 1.39 mg/dl (0.6-1.2) H 09/26/24 BUN/Creatinine Ratio 12.9 (10-20) 09/26/24 Glu 99 mg/dl (70-99(Fasting)) 09/26/24 Ca 8.4 mg/dl (8.6-10.3) L 09/26/24 Calcium Level 8.4 mg/dl (8.6-10.3) L 09/26/24 06:34 Microbiology 09/23/24 19:11 Aerobic Blood Culture - Preliminary Blood No growth in Aerobic bottle after 48 hours. Anaerobic Blood Culture - Preliminary No growth in Anaerobic bottle after 48 hours. 09/23/24 16:53 Aerobic Blood Culture - Preliminary Blood No growth in Aerobic bottle after 48 hours. Anaerobic Blood Culture - Preliminary No growth in Anaerobic bottle after 48 hours. 09/23/24 Unknown Urine Culture - Final Urine,Clean Catch Three types of organisms present, all low counts probable skin augie. No further identifications or sensitivities to follow. Diagnostic Findings (Past 24 Hours) Abdomen/Pelvis CT 09/25/24 15:17 CT ABDOMEN and PELVIS without INTRAVENOUS CONTRAST HISTORY: Abdominal pain TECHNIQUE: CT abdomen and pelvis without contrast. IV CONTRAST: None ENTERIC CONTRAST: None. COMPARISON: None FINDINGS: LOWER CHEST: Cardiomegaly. Small pericardial fluid. Coronary valvular calcifications of the heart. There are moderate pleural fluid bilaterally with subjacent atelectasis. Calcified thoracic lymph nodes. LIVER: No focal lesion identified in this noncontrast study. GALLBLADDER/BILIARY: The gallbladder is not well seen. This may be due to postcholecystectomy state versus underdistention of the gallbladder. No abnormal biliary dilatation. SPLEEN: Unremarkable. PANCREAS: Unremarkable. ADRENALS: Unremarkable. KIDNEYS: Right sided mild hydroureteronephrosis upstream to a 5 mm high density material within the proximal right ureter. Cortical atrophy and cortical cysts. PERITONEUM/RETROPERITONEUM. No lymphadenopathy by size criteria. No aortic aneurysm. Small pelvic fluid. GASTROINTESTINAL: No obstruction. Evaluation for active gastrointestinal bleed is limited in the absence of the intravenous contrast. Within this limitation, no definite blood products identified in the hollow viscus. Mildly hyperdense material within the gastric lumen may represent recently ingested material Extensive colonic diverticulosis without evidence of diverticulitis. REPRODUCTIVE: No suspicious pelvic mass identified. URINARY BLADDER: Unremarkable ABDOMINAL WALL mild anasarca. Small fat-containing umbilical hernia. BONES: Recent appearing traumatic fracture of the left 12th rib Posterior instrumented fusion of the lumbar spine with laminectomies. IMPRESSION: Evaluation for active gastrointestinal bleed is limited in the absence of the intravenous contrast. Within this limitation, no definite blood products are identified in the hollow viscus. Mildly hyperdense material within the gastric lumen may represent recently ingested material. Extensive colonic diverticulosis without evidence of diverticulitis. Right sided mild hydroureteronephrosis upstream to a 5 mm high density material within the proximal right ureter that may represent an obstructing stone. Cardiomegaly and moderate pleural fluids. Mild anasarca. These suggest volume overload/CHF Recent appearing traumatic fracture of the left 12th rib Electronically signed by Lamont Medley 09-25-2024 5:49 PM Chest X-Ray 09/26/24 07:00 EXAM: XR chest 1V portable CLINICAL HISTORY: pleural effusion TECHNIQUE: Radiograph of chest was acquired. 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 The cardiomediastinal silhouette is within normal limits. No acute osseous abnormality. IMPRESSION: 1. Mild bilateral pleural effusion with hazy pulmonary infiltrate in left lower zone. Increased left lower zone opacity compared to previous radiograph. Electronically signed by Yvon Gilbert 09-26-2024 08:26 AM I & O Totals 24 Hours 09/25/24 09/26/24 09/27/24 06:59 06:59 06:59 Intake Total 590 / 590 480 / 480 Balance 590 / 590 480 / 480 Cumulative 09/23/24 15:18 thru 09/26/24 05:39 Intake Total 2870 Output Total 151 Balance 2719 RT Ventilator Mngmt (Last Documented) Ventilator Ordered Settings Respiratory Rate 18 09/26/24 07:41 Ventilator - PT Measurements Respiratory Rate 18 PG Care Time/CCT Total # of Minutes Spent Total Time Spent with Patient: Total time spent is greater than 50% in coordination of care (as documented) at patient's floor/unit and/or counseling patient: Coding Level of Care Code 94246 INT INP/OBS CARE 2/55MIN Diagnoses Pleural effusion J90
--- NOTE | 2024-09-26 09:06 | Urology Consultation ---
Date of Consultation September 26, 2024 Assessment & Plan (1) Complicated UTI (urinary tract infection): (2) Hydronephrosis: (3) Ureteral obstruction: (4) Pleural effusion: (5) Urinary tract infection: (6) Lumbar stenosis with neurogenic claudication: Plan New consultation on patient with pyelonephritis and UTI issues with significant history. Patient has had multiple assessments and intervention over the last few weeks. He had presented at an outlying facility out of state with significant infection issue. Had been placed on ertapenem. Had been completing courses of IV antibiotics. Has been evaluated for multiple other comorbidities medical issues and now pulmonary issues. Additionally patient has history of recent bleed. Patient's creatinine had been elevated. Had undergone imaging yesterday which shown obstruction on the right. Was unclear if it was stone debris or other abnormality. Does appear to have hydronephrosis down along the ureter. There is a more pronounced area that transitions around the mid ureter however hydronephrosis appears to continue down into the pelvis. This is based on my interpretation and review of imaging on my own. It was reviewed interpreted by myself. Otherwise agree with read from imaging. Patient's labs were all thoroughly reviewed. Patient independently assessed, examined, interviewed, and evaluated. Patient's vitals and labs were all reviewed. Blood pressure 145/74. Pulse 77. Respirations 18. Oxygen saturation 94% on room air. Temperature 36.8. Pertinent values in the HPI and plan section. Imaging was reviewed interpreted by myself. Additional imaging of the chest was also reviewed and interpreted by myself. Patient does have pulmonology consultation. Otherwise agree with read. Vitals were reviewed. Creatinine is elevated at 1.39.This is mildly improved from yesterday when it was 1.5. White count is at 6.74. Has been on a course of broad-spectrum antibiotics since first presenting. According to records had been on ertapenem. Hemoglobin is low at 7.5. Has been slowly trending down with time. Discussed findings extensively with patient and family. Reviewed with nursing and care team. Patient's complicated medical and surgical history was reviewed and summarized above. Reviewed patient's recent hospitalization as well as the recent presentation to the ER with multiple issues. Patient's surgical, medical, social, and family history were all reviewed with pertinent values as above. Discussed patient's current diagnosis as well as concerns and issues. Reviewed different options moving forward. Discussed potential risks and benefits as well as possible options and concerns. Reviewed potential surgical options and interventions. Discussed potential issues and concerns related to intervention. Risk and benefits were discussed extensively with patient and any available family. Discussed potential risks related to anesthesia. Discussed risks of bleeding infection and injury. Reviewed extensively findings on imaging with patient. Did discuss possible need for intervention or assessment if persistent hydronephrosis. May be dealing with obstructive issues such as obstructing stone or obstruction from other source such as tumor polyp clot debris or other issue. If the obstruction continues may not be adequately treated with antibiotics and may continue to have ongoing issues. Did discuss possible options for stent for stone treatment versus other intervention. Reviewed observation. Discussed continued utilization of supportive care hydration and broad-spectrum antibiotics. Patient has significant anemia with hemoglobin decreasing over the last few days. Additionally is undergoing pulmonary workup. Would recommend finalizing both pulmonary and medical assessment with plans for possible intervention. If patient develops significant fever or chills develop severe nausea or vomiting. Develops worsening or severe change in QUIQUE or anuria would likely need to consider urgent intervention versus emergent intervention. Did speak with the hospitalist after evaluating the patient. Currently n.p.o. due to question of a GI bleed. Unknown source of anemia at this point. Additionally has considerable fluid collections bilaterally however it was decided to monitor for now without intervention or drainage. Reviewed options from urologic standpoint. Did discuss option to intervene with possible cystoscopy and bilateral ureteroscopy for assessment of potential blockages also for management of potential obstruction within the mid/proximal right ureter. Would recommend continuing supportive care with pulmonary fluid management, in creasing activity, and gentle diuresis as tolerated. Did have a bump in the creatinine when Lasix was tried yesterday. Would ideally optimize patient prior to intervention however if still anemic or dealing with issues could consider intervention with close monitoring. Otherwise could consider moving forward with assessment in the next 1 to 2 days with cystoscopy and possible ureteroscopy assuming patient has clearance from both pulmonary and medical standpoint. Would likely also need to stabilize hemoglobin. Will plan for possible reevaluation and intervention. If patient develops sev ere fevers issues or major other problems would consider urgent intervention. Patient's complicated medical and surgical histories reviewed and summarized above all labs and vitals were reviewed with pertinent values in the HPI and plan section. The imaging was thoroughly reviewed interpreted by myself with note as above. History of Present Illness Attending Physician: Edwin Vargas MD History of Present Illness New consultation for patient with UTI/Pyelo, discomfort, and ill feelings. Patient with extremely complicated history. Had severe bout of UTI and infection with sepsis at outlying facility. Had been out of the state and had to undergo IV antibiotic treatment. Had subsequently been following at [facility]. Has been in and out of the hospital/emergency room over the last 1 to 2 weeks. Patient was admitted at the end of last week. Was placed on broad-spectrum antibiotics. CT imaging yesterday showed possible obstruction on the right with debris versus irregularity in the mid ureter on the right side. Patient developed sudden onset of pain into flank going down and radiating into groin and back in waves comes and goes. Can be severe at times. Discussed and reviewed patient's family history for any history of issues, infections, and disease. Also, discussed patient's medical/surgery history especially related to any history of urinary issues or stone disease. Patient was admitted and is undergoing observation with broad spectrum IV antibiotics. Due to patient's significant illness had to unfortunately cancel a trip to [place]. Allergies Allergy/AdvReac Type Severity Reaction Status Date / Time metformin AdvReac Intermediate Diarrhea Verified 09/23/24 18:09 Home Medications Medication Instructions Recorded Confirmed Type insulin glargine 100 unit/mL (3 15 unit subcut HS 09/23/24 09/23/24 History mL) subcutaneous pen (Lantus Solostar U-100 Insulin) scopolamine base 1 mg over 3 days 1 mg transdermal .Q3DAYS PRN 09/23/24 09/23/24 History transdermal patch TRAVELING simvastatin 40 mg tablet 40 mg PO HS 09/23/24 09/23/24 History trazodone 50 mg tablet 50 mg PO HS 09/23/24 09/23/24 History Patient History Social History Smoking Status: Never smoker Second Hand Exposure: No; Do You Dip or Chew Tobacco: No; Hx Alcohol Use: Yes Alcohol type: other Hx Substance Use: No Preferred Language: Nepali Communication Ability: Effective Engagement Liaison Required: No Beliefs That Will Affect Care: None Current Living Situation: Spouse Current Living Situation Comment: Home Feels Safe at Home: Yes Assistive Devices: Walker and Other Review of Systems Review of Systems: All systems reviewed & are unremarkable except as noted in HPI & below Physical Exam Physical Exam: General: Alert and oriented x 3 in no acute distress. Advanced age HEENT: Normocephalic Atraumatic. Inspection normal. Cranial Nerves 2-12 Grossly intact. Nares are clear. Neck is supple. Normal inspection of face. Normal inspection of neck. Neurologic: No deficits on inspection. Baseline for motor function and sensory. Psychologic: Normal affect. Respiratory: Nonlabored. No use of accessory muscles. No tachypnea or dyspnea. Cardiovascular: No tachycardia Skin: [place] and Dry. No rashes or visible lesions. Extremities: Moving without issues. No motor deficits on inspection Lymphatics: No edema Abdomen: Soft moderately distended. Obese. No rebound or guarding. Results & Data Vital Signs (Past 12 Hours) Vital Signs Temp Pulse Pulse Resp BP Pulse Ox O2 Del Method 09/26/24 07:41 36.8 C 77 18 145/74 H 94 Room Air 09/26/24 03:31 36.6 C 67 18 118/73 95 Room Air 09/25/24 23:07 36.6 C 75 18 124/73 96 Room Air 09/25/24 22:03 69 PG Care Time/CCT Total # of Minutes Spent Total Time Spent with Patient: Total time spent is greater than 50% in coordination of care (as documented) at patient's floor/unit and/or counseling patient: Coding Level of Care Code 42715 INT INP/OBS CARE MIN Diagnoses Complicated UTI (urinary tract infection) N39.0 Hydronephrosis N13.30 Ureteral obstruction N13.5 Pleural effusion J90 Urinary tract infection N39.0 Lumbar stenosis with neurogenic claudication M48.062
--- NOTE | 2024-09-26 12:53 | History & Physical Report ---
Date of Service September 26, 2024 Assessment & Plan (1) Melena: (2) Anemia: (3) NSAID long-term use: (4) Complicated UTI (urinary tract infection): (5) Diverticulosis: Plan Patient is a 74-year-old woman presenting with urosepsis, bacteremia, hydronephrosis noted to have melena and significant anemia in the setting of chronic Excedrin use Recommendations: Plan for upper endoscopy with biopsy as needed on 09/27/2024 to evaluate for peptic ulcer disease No evidence of active GI bleeding at this time to warrant urgent evaluation Maintain patient on once daily proton pump inhibitor Strictly avoid NSAIDs N.p.o. after midnight in anticipation for procedure. Further recommendations to follow thereafter Admission and Anticipated Discharge Date Admission Date: September 23, 2024 History of Present Illness Chief Complaint: Melenic stools Primary Care Provider: Roxanne Sanford DO The patient is a very pleasant 74-year-old woman with multiple comorbidities including type 2 diabetes, sleep apnea, hypertension who presents with increased weakness, found to have UTI with bacteremia/urosepsis and hydronephrosis. She presents with generalized malaise, weakness, night sweats. She notes 2 episodes of black stools with most recent normal brown stool this morning in the background of daily Excedrin use. She denies any nausea, vomiting, odynophagia, dysphagia, early satiety, weight loss or any bowel irregularity. She notes that her last colonoscopy was several years ago. CT of the abdomen pelvis 09/25/2024 without IV contrast shows diverticular disease without observable bleeding. Exam is limited due to the lack of IV contrast. Hemoglobin was 7.5 on p resentation. Allergies Allergy/AdvReac Type Severity Reaction Status Date / Time metformin AdvReac Intermediate Diarrhea Verified 09/23/24 18:09 Home Medications Medication Instructions Recorded Confirmed Type insulin glargine 100 unit/mL (3 15 unit subcut HS 09/23/24 09/23/24 History mL) subcutaneous pen (Lantus Solostar U-100 Insulin) scopolamine base 1 mg over 3 days 1 mg transdermal .Q3DAYS PRN 09/23/24 09/23/24 History transdermal patch TRAVELING simvastatin 40 mg tablet 40 mg PO HS 09/23/24 09/23/24 History trazodone 50 mg tablet 50 mg PO HS 09/23/24 09/23/24 History Past Med/Surg History Problem List (Updated 09/26/24 @ 12:50 by Amaury Sanchez MD) NSAID long-term use Diverticulosis Anemia Melena Ureteral obstruction Hydronephrosis Generalized weakness (Acute) Pleural effusion (Acute) Urinary tract infection (Acute) Complicated UTI (urinary tract infection) (Acute) Lumbar stenosis with neurogenic claudication Social History Smoking Status: Never smoker Second Hand Exposure: No; Do You Dip or Chew Tobacco: No; Hx Alcohol Use: Yes Alcohol type: other Hx Substance Use: No Preferred Language: French Communication Ability: Effective Dental Office Manager Required: No Beliefs That Will Affect Care: None Current Living Situation: Spouse Current Living Situation Comment: Home Feels Safe at Home: Yes Assistive Devices: Walker and Other Review of Systems + chills, + sweats, + fatigue, + malaise and + weakness no dizziness, no epistaxis, no hoarseness and no dysphagia + pain on inspiration; no cough, no hemoptysis and no sputum production no chest pain, no chest pain with activity, no dyspnea at rest, no orthopnea, no palpitations and no lightheadedness as per Subjective / HPI + dysuria, + urinary frequency and + urinary hesitancy no back pain, no neck pain and no problem reported no rash, no pruritus and no yellowing of the skin no problem reported no problem reported + night sweats; no easy bleeding, no easy bruising and no unexplained weight loss no problem reported Physical Exam Constitutional: WD/WN, vitals as above Eyes: PERRL, conjunctivae normal, anicteric sclerae Neck: trachea midline, no thyromegaly Respiratory: normal respiratory effort, lungs clear to auscultation Cardiovascular: RRR, no murmur, no edema Gastrointestinal (Abdomen): normal bowel sounds, soft, nontender, no hepatosplenomegaly Neurologic: PERRL, EOMI, accommodation nl, no face palsy, no dysarthria Results & Data Vital Signs (Past 12 Hours) Vital Signs Temp Pulse Resp BP Pulse Ox O2 Del Method 09/26/24 11:43 36.8 C 80 20 131/72 91 Room Air 09/26/24 07:41 36.8 C 77 18 145/74 H 94 Room Air 09/26/24 03:31 36.6 C 67 18 118/73 95 Room Air Code Status & VTE Plan VTE Prophylaxis Plan VTE Prophylaxis will be ordered: Yes [place] [address] INT INP/OBS CARE MIN Patient Type New Medical Decision Making Moderate Complexity Diagnoses Melena K92.1 Anemia, unspecified type D64.9 Anemia type: unspecified type NSAID long-term use Z79.1 Complicated UTI (urinary tract infection) N39.0 Diverticulosis K57.90 (2) Anemia Anemia type: unspecified type Qualified Code(s): D64.9 - Anemia, unspecified
[2024-09-26] MEDS: FUROSEMIDE 40 MG TAB PO ONE (12:59)
--- NOTE | 2024-09-26 14:33 | Hospitalist Progress Note ---
Date of Service September 26, 2024 Assessment & Plan (1) Complicated UTI (urinary tract infection): Plan Bilateral pleural effusion Acute diastolic heart failure Likely multifactorial secondary to recent sepsis/IV fluids, discontinuation of HCTZ and diastolic heart failure --Chest CT: Dependent atelectasis bilaterally. Patchy densities in [id number]-left upper lobes may represent infectious/inflammatory process. Moderate bilateral pleural effusions. -- Elevated BNP --ECHO: EF 60 to 65%. Grade 1 diastolic dysfunction. Small loculated anterior right lateral pericardial effusion. Findings do not suggest cardiac tamponade. Moderate size left pleural effusion --Monitor I's and O's, daily weight -- Received IV Lasix -- Monitor electrolytes, renal function, volume status -- Appreciate pulmonary input: No indication for thoracentesis currently --Saturating well on room air -- Continue Lasix 40 mg daily --Monitor renal function, electrolytes -- Will need repeat chest x-ray as outpatient to ensure resolution of pleural effusion Melena Likely upper GI bleed Normocytic anemia Iron deficiency --CT ABD:Extensive colonic diverticulosis without evidence of diverticulitis. Avoid anticoagulation Monitor H&H and transfuse as needed Blood consent obtained Continue IV Protonix Appreciate GI input Iron level slightly low on blood work Peripheral smear pending N.p.o. after midnight for EGD tomorrow Will start on iron supplements as able May need to follow-up with hematology as outpatient Obstructive uropathy Suspected right ureteral stone --CT ABD:Right sided mild hydroureteronephrosis upstream to a 5 mm high density material within the proximal right ureter that may represent an obstructing stone. --Urine culture negative --Blood cultures negative to date -- Continue empiric ertapenem Appreciate urology input Monitor for any urinary retention Urology to consider possible cystoscopy if needed Progressive weakness/deconditioning Recent complicated UTI/sepsis --Normal TSH Continue PT OT, fall precautions Left rib fracture--POA Ambulatory dysfunction History of multiple falls as per family --CT showed:Recent appearing traumatic fracture of the left 12th rib Currently asymptomatic Fall precautions PT OT as able DM II Intermittent hypoglycemia HbA1c 7.5 Hold long-acting insulin Insulin sliding scale--adjust to minimize hypoglycemic episodes Glycemic pharmacist consulted Monitor blood glucose levels Hypertension Previously on lisinopril, HCTZ which were discontinued on recent hospitalization secondary to hypotension, sepsis Monitor blood pressure off medications Consider to start on losartan if blood pressure persistently elevated Blood pressure stable Dyslipidemia: Continue home simvastatin Insomnia: Continue home trazodone DVT Px: Heparin SQ--held due to melena SCDs for now Code Status Full code Admission and Anticipated Discharge Date Admission Date: September 23, 2024 Subjective Patient is seen and examined at bedside No new complaints Bowel movements more brown Discussed with urology today States having generalized weakness Updated patient's daughter over the phone Denies any chest pain, dyspnea, nausea, vomiting, abdominal pain, dysuria Review of Systems Review of Systems: All systems reviewed & are unremarkable except as noted in Subjective Physical Exam Physical Exam: Physical Exam: Vitals signs as noted above General Appearance:Moderately built and nourished, no apparent distress Head: normocephalic, Atraumatic Eyes: normal inspection, EOMI Neck: supple, Trachea midline Respiratory/Chest: Normal breath sounds, CTA, No accessory muscle use Cardiovascular: S1, S2, No murmur Abdomen/GI:Soft, Non tender, Bowel sounds present Extremities/Musculoskeletal:normal inspection, B/L LE edema Neurologic/Psych:AAOX3, grossly no focal neurological deficits Skin: normal color, warm Results & Data Results & Data Vital Signs (Past 12 Hours) Vital Signs Temp Pulse Resp BP Pulse Ox O2 Del Method 09/26/24 11:43 36.8 C 80 20 131/72 91 Room Air 09/26/24 07:41 36.8 C 77 18 145/74 H 94 Room Air 09/26/24 03:31 36.6 C 67 18 118/73 95 Room Air Laboratory Results Short CBC 09/26/24 Range/Units 06:34 WBC 6.74 (4.8-10.8) K/ul Hgb 7.5 L (12.0-16.0) g/dl Hct 23.5 L (37.0-47.0) % Plt Count 172 (130-400) K/uL BMP 09/26/24 06:34 Sodium 139 Potassium 4.2 Chloride 110 H Carbon Dioxide 27 BUN 18 Creatinine 1.39 H Glucose 99 Calcium 8.4 L
[2024-09-27 06:22] LABS: Hematocrit (blood only) 23.8 % (37.0-47.0); Hemoglobin 7.6 g/dl (12.0-16.0); Mean Corpuscular Hemoglobin 28.7 pg (25.0-34.0); Mean Corpuscular Volume 89.8 fL (80.0-100.0); Platelet Count 165 K/uL (130-400); RDW Standard Deviation 45.3 fL (36.4-46.3); Red Blood Count 2.65 M/uL (4.20-5.40); White Blood Count 6.69 K/ul (4.8-10.8)
[2024-09-27 06:36] LABS: Creatinine Clr Calc Pharmacy 26.1 ml/min
--- NOTE | 2024-09-27 06:48 | Urology Progress Note ---
Date of Service September 27, 2024 Assessment & Plan (1) Ureteral obstruction: (2) Hydronephrosis: (3) Lumbar stenosis with neurogenic claudication: (4) NSAID long-term use: (5) Anemia: (6) Melena: (7) Generalized weakness: (8) Complicated UTI (urinary tract infection): Plan Patient with severe pyelonephritis and prolonged illness. Patient had been discovered to have persistent obstructive signs on the right side. Previous records were being fully gathered however there was no mention of stone or other type of obstruction in previous records. Reviewed extensively possible issues. Current imaging have been reviewed interpreted by myself. Reviewed extensively options. Patient independently assessed, examined, interviewed, and evaluated this morning with discussion of plans moving forward. Patient's vitals and labs were all reviewed. Pertinent values in the HPI and plan section. Imaging was reviewed interpreted by myself. Imaging as mentioned in last note shows obstruction on right with possible stone debris or other abnormality in the midportion of the ureter. Otherwise agree with read. Vitals were reviewed. Discussed findings extensively with patient. Reviewed with consulting physicians/team. Discussed patient's current diagnosis as well as concerns and issues. Reviewed different options moving forward. Discussed potential risks and benefits as well as possible options and concerns. Reviewed potential surgical options and interventions. Discussed potential issues and concerns related to intervention. Risk and benefits were discussed extensively with patient and any available family. Discussed potential risks related to anesthesia. Discussed risks of bleeding infection and injury. Risks and benefits discussed at length for procedure. These include bleeding, infection, injury to surrounding tissues or organs, and risks associated with anesthesia. Patient states understanding and agrees to proceed. Will sign consent and proceed. Plan for Cystoscopy with possible bilateral retrograde pyelogram, ureteroscopy, possible stone treatment, and stent. Admission and Anticipated Discharge Date Admission Date: September 23, 2024 Subjective Patient admitted with pyelonephritis and UTI issues. Patient for the last 2 to 3 weeks has been dealing with severe pyelonephritis developing into sepsis. Had been at outlying facility in [place] and developed severe infection issues. Had to undergo hospitalization with broad-spectrum antibiotic coverage. Was found to be septic with bacteremia. Patient has been dealing with persistent issues. Has been on a full course of broad-spectrum IV antibiotics for coverage. Patient has required multiple reevaluations and assessments in the ER. Is still dealing with considerable discomfort and ill feelings. Additionally having severe deconditioning and bother. Patient presented to our ER over the weekend and found to have increasing issues with discomfort in the suprapubic region. Additionally was having abdominal bother and discomfort. Patient is afebrile. Had been on full course of broad-spectrum antibiotics. Patient had undergone repeat imaging with admission. Found to have hydronephrosis most significant on the right side. Has been undergoing supportive care with antibiotic therapy with oral m edications, IV medications, IV fluids, and oral intake. Does have considerable ongoing issues with ill feelings and fatigue but has not had severe or considerable increase in pain or major issues. Has not developed severe vomiting or other issues. Has not experienced fever or chills. Has been tolerating oral medications. Is tolerating fluids. Has noticed some significant frequency and urgency. Does have pain and discomfort in the flank and back. Has not had severe or intractable pain in the back and flank. Does have occasional burning and irritation. No severe episodes or major changes. Has not passed a large amount of blood or debris that may be the source of obstruction and/or stone. Review of Systems Review of Systems: All systems reviewed & are unremarkable except as noted in HPI & below Physical Exam Physical Exam: General: Alert in no acute distress. HEENT: Normocephalic Atraumatic. Inspection normal. Cranial Nerves 2-12 Grossly intact. Normal inspection of face. Normal inspection of neck. Psychologic: Normal affect. Respiratory: Nonlabored. No use of accessory muscles. No tachypnea or dyspnea. Cardiovascular: No tachycardia Skin: [place] and Dry. No rashes or visible lesions. Extremities/Lymphatics: No edema Abdomen: Soft Non-distended. No rebound or guarding. Results & Data Vital Signs (Past 12 Hours) Vital Signs Temp Pulse Pulse Resp BP Pulse Ox O2 Del Method 09/27/24 04:00 36.7 C 62 18 112/78 96 Room Air 09/26/24 22:40 36.7 C 67 18 114/63 96 Room Air 09/26/24 21:49 68 09/26/24 19:07 36.8 C 71 18 125/72 96 Room Air PG Care Time/CCT Total # of Minutes Spent Total Time Spent with Patient: Total time spent is greater than 50% in coordination of care (as documented) at patient's floor/unit and/or counseling patient: Coding Level of Care Code 50391 SUB INP/OBS CARE 3/50MIN Diagnoses Ureteral obstruction N13.5 Hydronephrosis N13.30 Lumbar stenosis with neurogenic claudication M48.062 NSAID long-term use Z79.1 Anemia, unspecified type D64.9 Anemia type: unspecified type Melena K92.1 Generalized weakness R53.1 Complicated UTI (urinary tract infection) N39.0 (5) Anemia Anemia type: unspecified type Qualified Code(s): D64.9 - Anemia, unspecified
[2024-09-27] MEDS: FUROSEMIDE 40 MG TAB PO SCH (08:22)
--- NOTE | 2024-09-27 08:45 | History & Physical Bridge Note ---
Date of Service September 27, 2024 History & Physical Bridge Note I have examined the patient, reviewed the History & Physical and in the interval since the performance of the History & Physical I have noted the following changes of clinical significance: no changes noted Spoke with patient this morning for plans of EGD today. She completed NPO as directed. No changes or concerns. Plan to proceed with EGD for further evaluation of anemia and dark stools.
--- NOTE | 2024-09-27 09:11 | Anesthesiology Consultation ---
Date of Service September 27, 2024 Assessment & Plan (1) Encounter for pre-operative examination: Chart Review Chart Review: Acceptable Risk for Surgery History Surgery Operation Date: 09/27/24 12:00 Proposed Procedures p Cystoscopy, Possible Bilateral Retrograde Pyelogram, Stone Treatment, Ureteral Dilation, Stent Placements - Kiran Wood DO Operation Date: 09/27/24 18:05 Proposed Procedures p Esophagogastroduodenoscopy Dr. Gutierrez - Jermain Gutierrez MD Height/Weight Height: 5 ft 1 in Weight: 65 kg Allergies Allergy/AdvReac Type Severity Reaction Status Date / Time metformin AdvReac Intermediate Diarrhea Verified 09/23/24 18:09 Medications Home Medications Medication Instructions Recorded Confirmed Last Taken insulin glargine 100 unit/mL (3 15 unit subcut HS 09/23/24 09/23/24 09/22/24 mL) subcutaneous pen (Lantus Solostar U-100 Insulin) scopolamine base 1 mg over 3 days 1 mg transdermal .Q3DAYS PRN 09/23/24 09/23/24 Unknown transdermal patch TRAVELING simvastatin 40 mg tablet 40 mg PO HS 09/23/24 09/23/24 09/22/24 trazodone 50 mg tablet 50 mg PO HS 09/23/24 09/23/24 09/22/24 Active Medications Generic Name Dose Route Start Last Admin Trade Name Freq PRN Reason Stop Dose Admin Dextrose 25 - 50 ml 09/23/24 21:00 09/24/24 06:54 Dextrose 50% 50 Ml Syringe IV 10/23/24 20:59 50 ml UD PRN Administration Hypoglycemia Protocol Protocol Ertapenem 1,000 mg in 10 mls @ 2 mls/min 09/24/24 18:00 09/26/24 17:07 Invanz 1000mg IV 10/04/24 17:59 2 mls/min Q24H ELIJAH Administration Pantoprazole Sodium 40 mg in 10 mls @ 5 mls/min 09/25/24 10:00 09/27/24 08:22 Protonix IV 10/25/24 09:59 5 mls/min BID ELIJAH Administration Insulin Aspart 0 units 09/23/24 21:15 09/27/24 07:20 Insulin Aspart Per Unit Charge SC 10/23/24 21:14 Not Given ACHS ELIJAH Insulin Glargine 15 units 09/23/24 21:15 09/23/24 22:31 Lantus Per Unit Charge SC 10/23/24 21:14 15 units HS ELIJAH Administration Lactobacillus Acidophilus 1,250 mg 09/24/24 09:00 09/27/24 08:18 Advanced Probiotic 625 Mg Capsule PO 10/24/24 08:59 Not Given DAILY ELIJAH Simvastatin 40 mg 09/23/24 21:00 09/26/24 21:46 Simvastatin 40 Mg Tab PO 10/23/24 20:59 40 mg HS ELIJAH Administration Trazodone HCl 50 mg 09/23/24 21:00 09/26/24 21:45 Trazodone Hcl 50 Mg Tab PO 10/23/24 20:59 50 mg HS ELIJAH Administration Past Medical History Medical History (Updated 09/27/24 @ 09:21 by Jarrell Zhao MD) Hypertension Diabetes mellitus Lumbar stenosis with neurogenic claudication Complicated UTI (urinary tract infection) Pleural effusion Hydronephrosis Melena Anemia Social History Smoking Status: Never smoker Do You Dip or Chew Tobacco: No Hx Alcohol Use: Yes Alcohol type: other alcohol intake frequency: holidays/special occasions only Hx Substance Use: No Physical Exam Vital Signs Last Vital Signs Temp 36.7 C 09/27/24 07:08 Pulse 70 09/27/24 08:00 Resp 17 09/27/24 07:08 BP 128/70 09/27/24 07:08 Pulse Ox 95 09/27/24 07:08 O2 Del Method Room Air 09/27/24 07:08 Testing Laboratory Results 09/27/24 05:44 09/27/24 05:44 PT 11.2 Seconds (9.0-12.0) 09/23/24 15:38 INR 1.0 (0.9-1.1) 09/23/24 15:38 APTT 26 Seconds (21-31) 09/23/24 15:38 Hemoglobin A1c 7.5 % (4.5-5.6) H 09/25/24 07:03 Urine Color Dark Yellow 09/23/24 Unknown Urine Appearance Turbid (Clear) A 09/23/24 Unknown Urine pH 5.5 (4.5-7.5) 09/23/24 Unknown Ur Specific [place] 1.026 (1.000-1.030) 09/23/24 Unknown Urine Protein 2+ (Negative) H 09/23/24 Unknown Urine Glucose (UA) Negative (Negative) 09/23/24 Unknown Urine Ketones Trace (Negative) H 09/23/24 Unknown Urine Nitrite Negative (Negative) 09/23/24 Unknown Ur Leukocyte Esterase 2+ (Negative) H 09/23/24 Unknown Urine WBC (Auto) >50 /hpf (0-5) H 09/23/24 Unknown Urine RBC (Auto) 3-5 /hpf (0-2) H 09/23/24 Unknown U Hyaline Cast (Auto) 11-20 /lpf (0-2) H 09/23/24 Unknown U Epithel Cells (Auto) 3-5 /hpf (0-2) H 09/23/24 Unknown Urine Bacteria (Auto) None Seen (None Seen) 09/23/24 Unknown Blood Type O Positive 09/25/24 13:40 Antibody Screen NEGATIVE 09/25/24 13:40 09/23/24 19:11 Aerobic Blood Culture - Preliminary Blood No growth in Aerobic bottle after 48 hours. Anaerobic Blood Culture - Preliminary No growth in Anaerobic bottle after 48 hours. 09/23/24 16:53 Aerobic Blood Culture - Preliminary Blood No growth in Aerobic bottle after 48 hours. Anaerobic Blood Culture - Preliminary No growth in Anaerobic bottle after 48 hours. 09/23/24 Unknown Urine Culture - Final Urine,Clean Catch Three types of organisms present, all low counts probable skin augie. No further identifications or sensitivities to follow. 09/27/24 07:08 POC Glucose 100 H Electrocardiogram Date: 09/23/24 Findings: + NSR @ (73) and + poor R wave progression Echocardiogram Date: 09/24/24 EF: 60-65% LV Function: normal Valvular Disease: + no significant valvular disease small loculated pericardial effusion - no signs of tamponade
--- NOTE | 2024-09-27 09:12 | Gastroenterology Progress Note ---
Date of Service September 27, 2024 Assessment & Plan (1) Melena: (2) Anemia: Plan (1) Anemia and Melena. - Continue to trend H/H and monitor for occult signs of bleeding. - We were going to have EGD completed today. However patient is now added on for Urology procedure which interferes with scheduling. - We'll plan to move EGD to tomorrow. - NPO after midnight orders entered. - Further recommendations to come with Supervising GI provider on medical rounds. Please see co-signature comments. Admission and Anticipated Discharge Date Admission Date: September 23, 2024 Supervising Physician Co-Signing Physician Notes I saw and examined this patient with our nurse practitioner and agree with her assessment and plan. Status post cystoscopy with ureteral stent placement. Signs of overt GI bleeding at the present time hemodynamically stable. Will proceed with endoscopy in a.m. Subjective [id number] with h/o NSAID use, Anemia, Melena, Ureteral obstruction is seen today on daily GI rounds. Patient denies any concerns today. H/H stable with Hgb 7.6g/dl. She denies any fevers, chills, N/V/D, abdominal pain, melena or hematochezia. Review of Systems Review of Systems: See HPI Physical Exam Physical Exam: Constitutional: NAD. Alert. Answering questions appropriately. Respiratory: Breathing is even, non-labored. Lungs trevino are clear to auscultation anteriorly. Cardiovascular: Regular Rate and Rhythm, no murmurs, rubs or gallops appreciated. Gastrointestinal (Abdomen): Normoactive bowel sounds x4, soft, non-distended, non-tender. Musculoskeletal: Lying in bed comfortably. No peripheral edema. Results & Data Results & Data Vital Signs (Past 12 Hours) Vital Signs Temp Pulse Pulse Resp BP Pulse Ox O2 Del Method 09/27/24 08:00 70 09/27/24 07:08 98.1 F 70 17 128/70 95 Room Air 09/27/24 04:00 98.1 F 62 18 112/78 96 Room Air 09/26/24 22:40 98.1 F 67 18 114/63 96 Room Air 09/26/24 21:49 68 Laboratory Results 09/27/24 09/27/24 09/26/24 07:08 05:44 19:56 WBC 6.69 RBC 2.65 L Hgb 7.6 L Hct 23.8 L MCV 89.8 MCH 28.7 MCHC 31.9 L RDW Std Deviation 45.3 RDW Coeff of Marek 14.1 Plt Count 165 MPV 9.5 Peripher Smr Path Cons Creatinine 1.63 H Est Cr Clr Drug Dosing 26.1 eGFR 32.89 POC Glucose 100 H 150 H 09/26/24 09/26/24 09/26/24 16:22 11:11 06:34 WBC RBC Hgb Hct MCV MCH MCHC RDW Std Deviation RDW Coeff of Marek Plt Count MPV Peripher Smr Path Cons Creatinine Est Cr Clr Drug Dosing eGFR POC Glucose 146 H 104 H PG Care Time/CCT Total # of Minutes Spent Total Time Spent with Patient: Total time spent is greater than 50% in coordination of care (as documented) at patient's floor/unit and/or counseling patient: Coding Level of Care Code 20034 SUB INP/OBS CARE 2/35MIN Diagnoses Melena K92.1 Anemia, unspecified type D64.9 Anemia type: unspecified type (2) Anemia Anemia type: unspecified type Qualified Code(s): D64.9 - Anemia, unspecified
[2024-09-27] MEDS ORDERED: LIDOCAINE 2% 2 ML VIAL/AMP(20MG/ML) INFIL ONE (09:36)
[2024-09-27] MEDS ORDERED: PROPOFOL IV EMULSION 10 MG/ML 20 ML VIAL IV ONE (09:36)
[2024-09-27] MEDS ORDERED: MIDAZOLAM HCL 1 MG/ML 2ML VIAL ONE (09:39)
[2024-09-27] MEDS ORDERED: ONDANSETRON INJ 2 MG/ML 2 ML VIAL ONE (09:39)
[2024-09-27] MEDS ORDERED: ATROPINE SULFATE 0.1 MG/ML 10ML SYR IV PRN (10:05)
[2024-09-27] MEDS ORDERED: ONDANSETRON INJ 2 MG/ML 2 ML VIAL IV PRN (10:05)
--- NOTE | 2024-09-27 11:37 | Operative Report ---
[facility] Post Operative Report Pre & Post Diagnosis Obstructive uropathy, ureteral obstruction. Same Operation Date: 09/28/24 17:50 <No data on this case meets the specified criteria> I identified the patient and participated in the time-out.: Yes Procedure Cystoscopy with bilateral retrograde pyelograms Right ureteroscopy, ureteral dilation, basket extraction of foreign body versus stone, urine aspiration right renal pelvis, and stent placement Operation Date: 09/28/24 17:50 <No data on this case meets the specified criteria> Surgeon Kiran Wood, II, DO Social Service Manager None Estimated Blood Loss 1 Findings Consistent with Post-Op Diagnosis Bilateral retrograde pyelogram showed no major sign of obstruction on the left no sign of significant issue. Right had severe obstruction at the mid ureter with irregular findings just proximal. Within the ureter starting at the area of stricture in the mid ureter there was a massive amount of debris. Debris was thick and appeared to be foreign body possible fungal ball versus matrix stone. Bleeding debris was able to be extracted using the basket. After extracting larger pieces, Purulent appearing urine was discovered up in the renal pelvis. This was sent for analysis. Stent was then placed. Specimens Stone analysisdebris/stone right ureter Cultureurine right kidney. Drains 4.8 Lao multilength on the right. Anesthesia Type General Complications none Disposition Disposition: Recovery Room Indications Patient with bothersome obstruction and is approximately 3 weeks from pyelonephritis episode with persistent problems. Risks and benefits discussed at length. Description of Procedure Patient was consented and brought back to the operating room. Patient was placed under anesthesia in the supine position and moved to the dorsal lithotomy position. Patient was prepped and draped in the regular sterile fashion. A time out was completed. A 30degree Cystoscope was placed into the bladder and the entire bladder was examined. The UO's were identified. The UO was cannulized with a catheter and a retrograde pyelogram was completed. The left side appeared to be clear. On the retrograde pyelogram on the right there was significant obstruction and irregularity in the proximal ureter and renal pelvis. Limited contrast was able to advance. A wire was then placed. The wire additionally had trouble advancing. There appeared to be some sort of obstruction in the mid ureter. The Rigid ureteroscope was taken into the ureter. In the mid ureter there was a severe stricture. This was dilated. The scope was then able to advance and immediately a large foreign body/debris/stone material was discovered. It was thickened and solid. The debris however was able to be grasped using a basket and pieces of it were able to be extracted. With the extraction a wire had been able to advance. The scope was then able to further advance into the proximal ureter and persistent debris was discovered. At this point a second wire was placed. The rigid scope removed. The flexible scope was then taken over the second wire and advanced to the proximal ureter and renal pelvis. Within the proximal ureter there appeared to be additional debris which was able to be removed utilizing the basket. The mid ureter appeared to be well dilated and was not having considerable bleeding but there was significant inflammation within the ureter. Once the UPJ was accessed a large amount of what appeared to be purulent fluid was seen draining from the kidney. This was aspirated and found to have a thickened purulent appearance. It was sent for culture. At this point it was decided to limit further manipulation of the kidney and place a stent. The entire pelvis was examined and found to be containing the large amount of foreign body/debris for stone. Additionally had appearance of possible fungal ball. The scope was slowly removed with the wire left in place. Contrast was placed through the scope for a pyelogram to assist in stent placement. The entire ureter was examined as the scope was slowly removed. No obstructions or other areas of concern were noted. With the wire in place, a 4.8 Fr Double J stent was placed. It was confirmed with fluoroscopy. With the stent in place, the bladder was emptied. The scope was removed. The patient was cleaned, aroused from anesthesia, and transferred to the pacu in stable condition having tolerated the procedure well with no complications. I was present and participated in all aspects of the procedure. The patient will be monitored in the PACU until transferred. Will plan to monitor with stent in position. May need possible repeat imaging versus repeat ureteroscopy to assess for clearing of debris. Will await analysis from urine culture and foreign body specimen. I attest to the content of the Intraoperative Record and any orders documented therein. Any exceptions are noted below.
--- NOTE | 2024-09-27 11:49 | Pharmacy Report ---
Pharmacy Glycemic Short Note 2 - Date of Service September 27, 2024 - Glycemic Short BSG Results (Last 24 hours): 09/26/24 09/26/24 09/27/24 16:22 19:56 07:08 POC Glucose 146 H 150 H 100 H 09/27/24 09/27/24 09:53 11:27 POC Glucose 97 95 OUTPATIENT ANTIDIABETIC REGIMEN: * Lantus 15 units SQ HS * HbA1c pending (09/25/24) ASSESSMENT: 09/27 * Elsy was made NPO yesterday and did not require any insulin. BSGs were all within goal range or below yesteday. * Fasting BSG today was 100mg/dL. She is still NPO so will continue to hold basal insulin. Will continue the previously ordered bolus insulin regimen with very loose parameters. 09/24 * Elsy is a 74 year old female admitted with weakness/UTI and a history fo insulin dependent type 2 diabetes mellitus. Pharmacy has been consulted to assist with glycemic management while inpatient. * BSGs below goal range on admission, home basal insulin dosage given overnight, severe hypoglycemia noted overnight (patient clammy, diaphoretic and shaky), treated with 25gm D50W, BSGs rebounded. Will hold basal insulin for now and add overnight checks to monitor for hypoglycemia. * NovoLog at a weight based stress of 2, unable to assess at this time since no insulin given and minimal PO intake. Looser goal range due to hypoglycemia PLAN FOR INPATIENT GLYCEMIC CONTROL: * Hold outpatient oral diabetes medications * Basal insulin * continue to hold * Bolus insulin * NovoLog per scale ACHS or Q6hrs while NPO * Goal Range: Low 140 mg/dL - High 180 mg/dL * Correction Factor: 50 mg/dL/unit * Nutritional / Prandial insulin per carb ratio of 1 unit per 30 grams CHO consumed
--- NOTE | 2024-09-27 12:57 | Anesthesiology Progress Note ---
Date of Service September 27, 2024 Anesthesia Post Procedure Vital Signs Vital Signs: Temp Pulse Pulse Pulse Resp BP BP 09/27/24 12:48 80 09/27/24 12:18 36.5 C 77 20 120/65 09/27/24 11:50 73 17 118/56 L 09/27/24 11:35 82 22 113/60 09/27/24 11:25 82 15 120/60 09/27/24 11:15 36.6 C 86 16 116/58 L 09/27/24 09:56 36.4 C L 72 15 147/87 H 09/27/24 08:00 70 09/27/24 07:08 36.7 C 70 17 128/70 09/27/24 04:00 36.7 C 62 18 112/78 09/26/24 22:40 36.7 C 67 18 114/63 09/26/24 21:49 68 09/26/24 19:07 36.8 C 71 18 125/72 09/26/24 15:52 36.9 C 87 20 149/80 H Pulse Ox O2 Del Method O2 Flow Rate 09/27/24 12:48 09/27/24 12:18 98 Nasal Cannula 2 09/27/24 11:50 92 Nasal Cannula 2 09/27/24 11:35 92 Nasal Cannula 4 09/27/24 11:25 98 Oxymask 10 09/27/24 11:15 96 Oxymask 10 09/27/24 09:56 94 Room Air 09/27/24 08:00 09/27/24 07:08 95 Room Air 09/27/24 04:00 96 Room Air 09/26/24 22:40 96 Room Air 09/26/24 21:49 09/26/24 19:07 96 Room Air 09/26/24 15:52 94 Room Air Transfer of Care Handoff Completed per policy Notes Mental Status: alert / awake / arousable Patient Amnestic to Procedure: Yes Nausea / Vomiting: adequately controlled Pain: adequately controlled Airway Patency, RR, SpO2: stable & adequate BP & HR: stable & adequate Hydration State: stable & adequate Anesthetic Complications: no major complications apparent
--- NOTE | 2024-09-27 13:33 | Hospitalist Progress Note ---
Date of Service September 27, 2024 Assessment & Plan (1) Complicated UTI (urinary tract infection): Plan Bilateral pleural effusion Acute diastolic heart failure Likely multifactorial secondary to recent sepsis/IV fluids, discontinuation of HCTZ and diastolic heart failure --Chest CT: Dependent atelectasis bilaterally. Patchy densities in mznwr-khvxbtk-wtml-left upper lobes may represent infectious/inflammatory process. Moderate bilateral pleural effusions. -- Elevated BNP --ECHO: EF 60 to 65%. Grade 1 diastolic dysfunction. Small loculated anterior right lateral pericardial effusion. Findings do not suggest cardiac tamponade. Moderate size left pleural effusion --Monitor I's and O's, daily weight -- Received IV Lasix -- Monitor electrolytes, renal function, volume status -- Appreciate pulmonary input: No indication for thoracentesis currently --Saturating well on room air -- Hold Lasix due to worsening kidney function --Monitor renal function, electrolytes -- Monitor volume status closely Melena Likely upper GI bleed Normocytic anemia Iron deficiency --CT ABD:Extensive colonic diverticulosis without evidence of diverticulitis. --Peripheral smear pending Avoid anticoagulation Monitor H&H and transfuse as needed Blood consent obtained Continue IV Protonix Appreciate GI input Iron level slightly low on blood work Will obtain SPEP Will start on iron supplements as able N.p.o. after midnight for EGD tomorrow Advised to follow-up with hematology as outpatient Obstructive uropathy Suspected right ureteral stone --CT ABD:Right sided mild hydroureteronephrosis upstream to a 5 mm high density material within the proximal right ureter that may represent an obstructing stone. --S/P Right ureteroscopy, ureteral dilation, basket extraction of foreign body versus stone, urine aspiration right renal pelvis, and stent placement by on 09/17/24 --Urine culture pending --Blood cultures: negative to date -- Continue empiric ertapenem Appreciate urology input Monitor for any urinary retention Progressive weakness/deconditioning Recent complicated UTI/sepsis --Normal TSH Continue PT OT, fall precautions Left rib fracture--POA Ambulatory dysfunction History of multiple falls as per family --CT showed:Recent appearing traumatic fracture of the left 12th rib Currently asymptomatic Fall precautions PT OT as able DM II Intermittent hypoglycemia HbA1c 7.5 Hold long-acting insulin--need adjustment of insulin dose on discharge Insulin sliding scale--adjust to minimize hypoglycemic episodes Glycemic pharmacist consulted Monitor blood glucose levels Mostly not requiring insulin to manage her blood glucose levels currently likely due to poor oral intake Hypertension Previously on lisinopril, HCTZ which were discontinued on recent hospitalization secondary to hypotension, sepsis Monitor blood pressure off medications Consider to start on losartan if blood pressure persistently elevated Blood pressure stable Dyslipidemia: Continue home simvastatin Insomnia: Continue home trazodone DVT Px: Heparin SQ--held due to melena SCDs for now Code Status Full code Admission and Anticipated Discharge Date Admission Date: September 23, 2024 Subjective Patient is seen and examined at bedside States feeling more " stronger" today No new complaints Had ureteral stent placement today Denies any chest pain, dyspnea, nausea, vomiting, abdominal pain, dysuria Review of Systems Review of Systems: All systems reviewed & are unremarkable except as noted in Subjective Physical Exam Physical Exam: Physical Exam: Vitals signs as noted above General Appearance:Moderately built and nourished, no apparent distress Head: normocephalic, Atraumatic Eyes: normal inspection, EOMI Neck: supple, Trachea midline Respiratory/Chest: Normal breath sounds, CTA, No accessory muscle use Cardiovascular: S1, S2, No murmur Abdomen/GI:Soft, Non tender, Bowel sounds present Extremities/Musculoskeletal:normal inspection, B/L LE edema Neurologic/Psych:AAOX3, grossly no focal neurological deficits Skin: normal color, warm Results & Data Results & Data Vital Signs (Past 12 Hours) Vital Signs Temp Pulse Pulse Pulse Resp BP BP 09/27/24 12:48 80 09/27/24 12:18 36.5 C 77 20 120/65 09/27/24 11:50 73 17 118/56 L 09/27/24 11:35 82 22 113/60 09/27/24 11:25 82 15 120/60 09/27/24 11:15 36.6 C 86 16 116/58 L 09/27/24 09:56 36.4 C L 72 15 147/87 H 09/27/24 08:00 70 09/27/24 07:08 36.7 C 70 17 128/70 09/27/24 04:00 36.7 C 62 18 112/78 Pulse Ox O2 Del Method O2 Flow Rate 09/27/24 12:48 09/27/24 12:18 98 Nasal Cannula 2 09/27/24 11:50 92 Nasal Cannula 2 09/27/24 11:35 92 Nasal Cannula 4 09/27/24 11:25 98 Oxymask 10 09/27/24 11:15 96 Oxymask 10 09/27/24 09:56 94 Room Air 09/27/24 08:00 09/27/24 07:08 95 Room Air 09/27/24 04:00 96 Room Air Laboratory Results Short CBC 09/27/24 Range/Units 05:44 WBC 6.69 (4.8-10.8) K/ul Hgb 7.6 L (12.0-16.0) g/dl Hct 23.8 L (37.0-47.0) % Plt Count 165 (130-400) K/uL BMP 09/27/24 05:44 Creatinine 1.63 H
--- NOTE | 2024-09-27 13:58 | Fluoroscopy Report ---
FL retrograde includes kub CLINICAL HISTORY: BILATERAL STENT PLACEMENT COMPARISON STUDY: None FLUOROSCOPY TIME: 38 seconds FLUOROSCOPY IMAGES: 6 EXPOSURE DOSE: 5.7 mGy FINDINGS: Fluoroscopy was provided for urologic procedure. IMPRESSION: Intraoperative fluoroscopy. ACT 112: Negative or not required by law. Electronically signed by: Hardy Lucas M.D. 09/27/2024 1:57 PM
[2024-09-27] MEDS: DIATRIZOATE MEGLUMINE 30% 100ML VIAL INSTIL ONE (15:10)
[2024-09-27] MEDS: ACETAMINOPHEN 325 MG TAB PO PRN (15:35)
--- NOTE | 2024-09-27 15:41 | XRay Report ---
XR chest 1V portable CLINICAL HISTORY: hypoxia COMPARISON STUDY: 09/26/2024 FINDINGS: Stable mild cardiomegaly with pulmonary vascular congestion. Stable hazy opacity in lung ba ses with obscuration of the diaphragm. No pneumothorax. IMPRESSION: Stable exam with CHF and small bilateral pleural effusions and associated lung base cons olidation. ACT 112: Negative or not required by law. Electronically signed by: Hardy Lucas M.D. 09/27/2024 3:39 PM
[2024-09-28 08:06] LABS: Anion Gap 4.0 (3-11); Calcium 8.4 mg/dl (8.6-10.3); Carbon Dioxide 27.0 mmol/L (21-32); Chloride 107.0 mmol/L (98-107); Potassium 4.2 mmol/L (3.5-5.1); Sodium 138.0 mmol/L (136-145)
[2024-09-28 08:12] LABS: Blood Urea Nitrogen 22.0 mg/dl (6-23); Creatinine Clr Calc Pharmacy 24.1 ml/min; Glucose 111.0 mg/dl (70-99(Fasting))
[2024-09-28 08:26] LABS: Hematocrit (blood only) 21.2 % (37.0-47.0); Hemoglobin 6.6 g/dl (12.0-16.0); Mean Corpuscular Hemoglobin 28.4 pg (25.0-34.0); Mean Corpuscular Volume 91.4 fL (80.0-100.0); Platelet Count 124 K/uL (130-400); RDW Standard Deviation 48.5 fL (36.4-46.3); Red Blood Count 2.32 M/uL (4.20-5.40); White Blood Count 17.92 K/ul (4.8-10.8)
[2024-09-28] MEDS ORDERED: SODIUM CHLORIDE 0.9% 100 ML IV PRN (08:30)
--- NOTE | 2024-09-28 08:56 | History & Physical Bridge Note ---
Date of Service September 28, 2024 History & Physical Bridge Note I have examined the patient, reviewed the History & Physical and in the interval since the performance of the History & Physical I have noted the following changes of clinical significance: no changes noted Spoke with patient today. She completed NPO orders. No concerns. Continue with EGD as planned for today. Supervising Physician Co-Signing Physician Notes I saw and examined this patient with our nurse practitioner and agree with her assessment and plan. Will proceed with endoscopy to further evaluate possible upper GI bleeding.
--- NOTE | 2024-09-28 09:31 | Nephrology Consultation ---
Date of Consultation September 28, 2024 Assessment & Plan (1) QUIQUE (acute kidney injury): Likely multifactorial from ATN ( setting of Pyelonephritis ) and still has low BP which delays renal recovery. So far Ureteric stent has not made an impact but could take few days. Also the primary local delivery driver is likely ATN. Appears vol overloaded but then has Low BP. Given no resp distress and RA no need for lasix though. Dont give IV fluids. Avoid NSAIDs was taking . Creat was 1.2 just few days ago and would count 1--1.2 as baseline. Support hemodynamic and duy avoid Low BP and Low o2 (2) Ureteral obstruction: Appears foreign body/Infected stone as the Cause of rt Sided blockade and now S/p ureteric Stent. for now Appears to be holding fine. Creat has not come down yet as QUIQUE maybe more ATN as discussed above. reviewed urology Consult as well as procedure note and in agreement (3) Urinary tract infection: On ertapenem. Do renal dosing sp given rising Creat. Current Blood and urine C/s reviewed and negative Plan Total time spent 64 mins History of Present Illness Reason for Consultation: QUIQUE Attending Physician: Edwin Vargas MD History of Present Illness 74/F with with multiple comorbidities including type 2 diabetes, sleep apnea, hypertension who presented on 09/23/24 with increased weakness, found to have UTI with bacteremia/urosepsis and hydronephrosis. She presents with generalized malaise, weakness, night sweats. has had few episodes of black stools and hgb dropped to 6.6. Did have NSAID use. Of note, she was vacationing in [place] where she got admitted in the hospital end of July and noted to have Proteus mirabilis infection in the urine and blood, was started on Rocephin. However patient was not improving much and later on culture grew Klebsiella and she was put on ertapenem. She completed ertapenem course about 5 to 6 days pre admission. After completion of the antibiotic course, she started feeling weak which was progressively worsening and then came ot hospital. She denies any nausea, vomiting, dysphagia, early satiety, weight loss or any bowel irregularity. CT of the abdomen pelvis 09/25/2024 without IV contrast shows diverticular disease without observable bleeding. Creat was 1.2 just 4 days ago but has been rising slowly since then and is now 1.78. In the interim had rt ureteric stent placed 09/27 and noted to have Pyelonephritis and ? infected renal stone. BP is running lower. Imaging shows e/o fluid overload and also has Pl effusion. No Lasix or iv fluid currently. 92 % on RA. ROS--see Above HPI. 12 systems reviewed and negative Physical Exam Constitutional: Alert and no distress MM moist Neck: Supple. No JVD Respiratory: normal respiratory effort, lungs clear to auscultation Cardiovascular: RRR, no murmur, no edema Gastrointestinal (Abdomen): soft, nontender Neurologic: PERRL, EOMI, accommodation nl, no face palsy, no dysarthria Allergies Allergy/AdvReac Type Severity Reaction Status Date / Time metformin AdvReac Intermediate Diarrhea Verified 09/23/24 18:09 Home Medications Medication Instructions Recorded Confirmed Type insulin glargine 100 unit/mL (3 15 unit subcut HS 09/23/24 09/23/24 History mL) subcutaneous pen (Lantus Solostar U-100 Insulin) scopolamine base 1 mg over 3 days 1 mg transdermal .Q3DAYS PRN 09/23/24 09/23/24 History transdermal patch TRAVELING simvastatin 40 mg tablet 40 mg PO HS 09/23/24 09/23/24 History trazodone 50 mg tablet 50 mg PO HS 09/23/24 09/23/24 History blood sugar diagnostic (Contour #100 ea 09/27/24 Rx Next Test Strips) lancets (Lancets,Ultra Thin) #100 ea 09/27/24 Rx Patient History Medical History Hypertension Diabetes mellitus Lumbar stenosis with neurogenic claudication Complicated UTI (urinary tract infection) Pleural effusion Hydronephrosis Melena Anemia Social History Smoking Status: Never smoker Second Hand Exposure: No; Do You Dip or Chew Tobacco: No; Hx Alcohol Use: Yes Alcohol type: other Hx Substance Use: No Preferred Language: Khmer Communication Ability: Effective Arm Rest Builder Required: No Beliefs That Will Affect Care: None Current Living Situation: Spouse Current Living Situation Comment: Home Feels Safe at Home: Yes Assistive Devices: Walker and Other Results & Data Vital Signs (Past 12 Hours) Vital Signs Temp Pulse Pulse Resp BP Pulse Ox O2 Del Method 09/28/24 08:01 36.5 C 74 17 96/65 L 92 Room Air 09/28/24 08:00 72 09/28/24 03:30 36.4 C L 71 18 90/55 L 92 Room Air 09/28/24 00:46 98/54 L 09/28/24 00:00 77 09/27/24 23:25 36.3 C L 72 18 89/53 L 94 Room Air Laboratory Results CBC, UA, urine and blood c/s reviewed. Diagnostic Findings CXR and CT reviewed.
--- NOTE | 2024-09-28 14:20 | Urology Progress Note ---
Date of Service September 28, 2024 Assessment & Plan (1) Ureteral obstruction: (2) Urinary tract infection: (3) QUIQUE (acute kidney injury): Plan Patient postop day #1 cystoscopy with bilateral retrograde pyelograms, right ureteroscopy, ureteral dilation, basket extraction of foreign body versus stone, urine aspiration right renal pelvis and stent placement Febrile yesterday afternoon (38.9); afebrile overnight and today Labs reviewedcreatinine 1.78, WBC 17.19, hemoglobin 6.6 Urine culture 09/23 with 3 types of organisms present, all low counts probable skin augie Blood culture 09/23 no growth to date Blood culture 09/27 pending Urine culture from kidney aspirate prelim with no growth Tolerating right ureteral stent with mild bother Continue broad-spectrum antibiotics and narrow per sensitivity data available Continue supportive care, antibiotics and medical management per hospital medicine service Plan to maintain ureteral stent for a few weeks and follow-up in clinic with repeat imaging Will arrange outpatient follow-up with our service will sign off, please contact her service with any additional questions or concerns Admission and Anticipated Discharge Date Admission Date: September 23, 2024 Subjective Patient seen and examined at bedside this afternoon Febrile yesterday afternoon, no fever or chills since Reports mild right flank discomfort Notes dysuria and some hematuria post procedure Currently receiving blood transfusion and pending EGD today No nausea or vomiting Review of Systems Constitutional: as per Subjective / HPI Genitourinary: as per Subjective / HPI Physical Exam Constitutional: well developed and well nourished; no acute distress Respiratory: normal respiratory effort; no respiratory distress and no labored breathing Gastrointestinal (Abdomen): Inspection/Auscultation: abdomen normal to inspection Musculoskeletal: Head/Neck/Chest: normocephalic Neurologic: moves all extremities and awake Psychiatric: Orientation: alert and oriented x 3 Results & Data Vital Signs (Past 12 Hours) Vital Signs Temp Pulse Pulse Resp BP BP Pulse Ox 09/28/24 14:01 74 18 112/72 93 09/28/24 12:56 81 16 115/68 91 09/28/24 12:00 36.7 C 74 18 119/58 L 92 09/28/24 11:30 36.8 C 72 16 109/72 92 09/28/24 11:15 36.8 C 74 16 109/69 91 09/28/24 11:14 36.8 C 74 16 109/69 09/28/24 10:45 36.6 C 76 16 98/56 L 94 09/28/24 08:01 36.5 C 74 17 96/65 L 92 09/28/24 08:00 72 09/28/24 03:30 36.4 C L 71 18 90/55 L 92 O2 Del Method 09/28/24 14:01 09/28/24 12:56 09/28/24 12:00 09/28/24 11:30 09/28/24 11:15 09/28/24 11:14 09/28/24 10:45 09/28/24 08:01 Room Air 09/28/24 08:00 09/28/24 03:30 Room Air PG Care Time/CCT Total # of Minutes Spent Total Time Spent with Patient: Total time spent is greater than 50% in coordination of care (as documented) at patient's floor/unit and/or counseling patient: Coding Level of Care Code 55464 SUB INP/OBS CARE 2/35MIN Diagnoses Ureteral obstruction N13.5 Urinary tract infection N39.0 QUIQUE (acute kidney injury) N17.9
--- NOTE | 2024-09-28 14:50 | Hospitalist Progress Note ---
Date of Service September 28, 2024 Assessment & Plan (1) Complicated UTI (urinary tract infection): Plan Bilateral pleural effusion Acute diastolic heart failure Likely multifactorial secondary to recent sepsis/IV fluids, discontinuation of HCTZ and diastolic heart failure --Chest CT: Dependent atelectasis bilaterally. Patchy densities in oxbov-gzkovsd-rkun-left upper lobes may represent infectious/inflammatory process. Moderate bilateral pleural effusions. -- Elevated BNP --ECHO: EF 60 to 65%. Grade 1 diastolic dysfunction. Small loculated anterior right lateral pericardial effusion. Findings do not suggest cardiac tamponade. Moderate size left pleural effusion --Monitor I's and O's, daily weight -- Received IV Lasix -- Monitor electrolytes, renal function, volume status -- Appreciate pulmonary input: No indication for thoracentesis currently --Saturating well on room air -- Hold Lasix due to worsening kidney function --Monitor renal function, electrolytes --Monitor volume status closely Melena Likely upper GI bleed Normocytic anemia Iron deficiency Acute blood loss anemia --CT ABD:Extensive colonic diverticulosis without evidence of diverticulitis. --Peripheral smear: No features of myelodysplasia, mild rouleaux Avoid anticoagulation Monitor H&H and transfuse as needed Blood consent obtained Continue IV Protonix Appreciate GI input Iron level slightly low on blood work SPEP--pending Will start on iron supplements as able N.p.o. after midnight for EGD tomorrow Advised to follow-up with hematology as outpatient Will transfuse 1 unit PRBC today Hemoglobin 6.6 today Obstructive uropathy Secondary to ureteral debris/stricture Likely renal pelvic abscess--POA --CT ABD:Right sided mild hydroureteronephrosis upstream to a 5 mm high density material within the proximal right ureter that may represent an obstructing stone. --S/P Right ureteroscopy, ureteral dilation, basket extraction of foreign body versus stone, urine aspiration right renal pelvis, and stent placement by on 09/27/24 --Urine culture pending --Blood cultures: negative to date -- Continue empiric ertapenem Appreciate urology input adjust antibiotics based on cultures: Monitor for any urinary retention Needs follow-up with urology on discharge Acute kidney injury Likely due to ATN/obstructive uropathy Baseline creatinine 1-1.2 Avoid NSAIDs Monitor volume status Appreciate nephrology input Avoid nephrotoxic agents as able Progressive weakness/deconditioning Recent complicated UTI/sepsis --Normal TSH Continue PT OT, fall precautions Left rib fracture--POA Ambulatory dysfunction History of multiple falls as per family --CT showed:Recent appearing traumatic fracture of the left 12th rib Currently asymptomatic Fall precautions PT OT as able DM II Intermittent hypoglycemia HbA1c 7.5 Hold long-acting insulin--need adjustment of insulin dose on discharge Insulin sliding scale--adjust to minimize hypoglycemic episodes Glycemic pharmacist consulted Monitor blood glucose levels Mostly not requiring insulin to manage her blood glucose levels currently likely due to poor oral intake Hypertension Previously on lisinopril, HCTZ which were discontinued on recent hospitalization secondary to hypotension, sepsis Monitor blood pressure off medications Consider to start on losartan if blood pressure persistently elevated Blood pressure stable Dyslipidemia: Continue home simvastatin Insomnia: Continue home trazodone DVT Px: Heparin SQ--held due to melena/hematuria, anemia SCDs for now Code Status Full code Admission and Anticipated Discharge Date Admission Date: September 23, 2024 Subjective Patient seen and examined at bedside this afternoon States having hematuria today Also reports having fever, chills overnight Denies any rectal bleed No other complaints today Denies any chest pain, dyspnea, nausea, vomiting, abdominal pain Updated patient's daughter in detail over the phone Plan for EGD today Will transfuse 1 unit PRBC today Discussed with urology Review of Systems Review of Systems: All systems reviewed & are unremarkable except as noted in Subjective Physical Exam Physical Exam: Physical Exam: Vitals signs as noted above General Appearance:Moderately built and nourished, no apparent distress Head: normocephalic, Atraumatic Eyes: normal inspection, EOMI Neck: supple, Trachea midline Respiratory/Chest: Normal breath sounds, CTA, No accessory muscle use Cardiovascular: S1, S2, No murmur Abdomen/GI:Soft, Non tender, Bowel sounds present Extremities/Musculoskeletal:normal inspection, B/L LE edema Neurologic/Psych:AAOX3, grossly no focal neurological deficits Skin: normal color, warm Results & Data Results & Data Vital Signs (Past 12 Hours) Vital Signs Temp Pulse Pulse Resp BP BP Pulse Ox 09/28/24 14:16 73 16 107/69 91 09/28/24 14:01 74 18 112/72 93 09/28/24 12:56 81 16 115/68 91 09/28/24 12:00 36.7 C 74 18 119/58 L 92 09/28/24 11:30 36.8 C 72 16 109/72 92 09/28/24 11:15 36.8 C 74 16 109/69 91 09/28/24 11:14 36.8 C 74 16 109/69 09/28/24 10:45 36.6 C 76 16 98/56 L 94 09/28/24 08:01 36.5 C 74 17 96/65 L 92 09/28/24 08:00 72 09/28/24 03:30 36.4 C L 71 18 90/55 L 92 O2 Del Method 09/28/24 14:16 09/28/24 14:01 09/28/24 12:56 09/28/24 12:00 09/28/24 11:30 09/28/24 11:15 09/28/24 11:14 09/28/24 10:45 09/28/24 08:01 Room Air 09/28/24 08:00 09/28/24 03:30 Room Air Laboratory Results Short CBC 09/28/24 Range/Units 06:58 WBC 17.92 H (4.8-10.8) K/ul Hgb 6.6 L* (12.0-16.0) g/dl Hct 21.2 L (37.0-47.0) % Plt Count 124 L (130-400) K/uL BMP 09/28/24 06:58 Sodium 138 Potassium 4.2 Chloride 107 Carbon Dioxide 27 BUN 22 Creatinine 1.78 H Glucose 111 H Calcium 8.4 L
--- NOTE | 2024-09-28 15:44 | Anesthesiology Consultation ---
Date of Service September 28, 2024 Assessment & Plan Chart Review Chart Review: Acceptable Risk for Surgery ASA ASA3 Proposed Anesthesia Anesthesia Type: MAC Risk / Benefits Reviewed With: PT / POA / Parent / Guardian, Accepts Plan and Informed Consent Obtained History Surgery Operation Date: 09/27/24 12:00 Proposed Procedures p Cystoscopy, Possible Bilateral Retrograde Pyelogram, Stone Treatment, Ureteral Dilation, Stent Placements - Kiran Wood DO Operation Date: 09/28/24 17:50 Proposed Procedures p Esophagogastroduodenoscopy Dr. Gutierrez - Jermain Gutierrez MD Height/Weight Height: 5 ft 1 in Weight: 65.8 kg Allergies Allergy/AdvReac Type Severity Reaction Status Date / Time metformin AdvReac Intermediate Diarrhea Verified 09/28/24 15:08 Medications Home Medications Medication Instructions Recorded Confirmed Last Taken insulin glargine 100 unit/mL (3 15 unit subcut HS 09/23/24 09/23/24 09/22/24 mL) subcutaneous pen (Lantus Solostar U-100 Insulin) scopolamine base 1 mg over 3 days 1 mg transdermal .Q3DAYS PRN 09/23/24 09/23/24 Unknown transdermal patch TRAVELING simvastatin 40 mg tablet 40 mg PO HS 09/23/24 09/23/24 09/22/24 trazodone 50 mg tablet 50 mg PO HS 09/23/24 09/23/24 09/22/24 blood sugar diagnostic (Contour #100 ea 09/27/24 Unknown Next Test Strips) lancets (Lancets,Ultra Thin) #100 ea 09/27/24 Unknown Active Medications Generic Name Dose Route Start Last Admin Trade Name Freq PRN Reason Stop Dose Admin Acetaminophen 650 mg 09/27/24 15:10 09/27/24 15:35 Acetaminophen 325 Mg Tab PO 10/27/24 15:09 650 mg Q4H PRN Administration Pain or Fever Dextrose 25 - 50 ml 09/23/24 21:00 09/24/24 06:54 Dextrose 50% 50 Ml Syringe IV 10/23/24 20:59 50 ml UD PRN Administration Hypoglycemia Protocol Protocol Pantoprazole Sodium 40 mg in 10 mls @ 5 mls/min 09/25/24 10:00 09/28/24 08:53 Protonix IV 10/25/24 09:59 5 mls/min BID ELIJAH Administration Insulin Aspart 0 units 09/23/24 21:15 09/28/24 12:03 Insulin Aspart Per Unit Charge SC 10/23/24 21:14 Not Given ACHS ELIJAH Lactobacillus Acidophilus 1,250 mg 09/24/24 09:00 09/28/24 08:53 Advanced Probiotic 625 Mg Capsule PO 10/24/24 08:59 1,250 mg DAILY ELIJAH Administration Simvastatin 40 mg 09/23/24 21:00 09/27/24 21:18 Simvastatin 40 Mg Tab PO 10/23/24 20:59 40 mg HS ELIJAH Administration Trazodone HCl 50 mg 09/23/24 21:00 09/27/24 21:59 Trazodone Hcl 50 Mg Tab PO 10/23/24 20:59 50 mg HS ELIJAH Administration NPO Date Last Intake of Fluids: 09/27/24 Time Last Intake of Fluids: 20:00 Date Last Intake of Solids: 09/27/24 Time Last Intake of Solids: 18:00 Past Medical History Medical History Hypertension Diabetes mellitus Lumbar stenosis with neurogenic claudication Complicated UTI (urinary tract infection) Pleural effusion Hydronephrosis Melena Anemia Exercise / Class Metabolic Activity II 4-5 Yardwork/Stairs/Walk up hill Past Anesthesia History No Hx of Anesthesia Complications Social History Smoking Status: Never smoker Do You Dip or Chew Tobacco: No Hx Alcohol Use: Yes Alcohol type: other alcohol intake frequency: holidays/special occasions only Hx Substance Use: No Review of Systems ROS Unobtainable: All systems reviewed & are unremarkable except as noted in HPI & below Physical Exam Vital Signs Last Vital Signs Temp 36.4 C L 09/28/24 15:10 Pulse 68 09/28/24 15:10 Resp 16 09/28/24 15:10 BP 115/63 09/28/24 15:10 Pulse Ox 91 09/28/24 15:10 O2 Del Method Room Air 09/28/24 15:10 O2 Flow Rate 2 09/27/24 12:18 ENMT Thyromental Distance: > or= 3.5 Finger Breadths Mallampati Class: II Respiratory normal respiratory effort Auscultation: lungs clear to auscultation bilaterally Cardiovascular Rate/Rhythm: regular rate and regular rhythm Psychiatric Orientation: alert and oriented x 3 Testing Laboratory Results 09/28/24 06:58 09/28/24 06:58 PT 11.2 Seconds (9.0-12.0) 09/23/24 15:38 INR 1.0 (0.9-1.1) 09/23/24 15:38 APTT 26 Seconds (21-31) 09/23/24 15:38 Hemoglobin A1c 7.5 % (4.5-5.6) H 09/25/24 07:03 Urine Color Dark Yellow 09/23/24 Unknown Urine Appearance Turbid (Clear) A 09/23/24 Unknown Urine pH 5.5 (4.5-7.5) 09/23/24 Unknown Ur Specific [place] 1.026 (1.000-1.030) 09/23/24 Unknown Urine Protein 2+ (Negative) H 09/23/24 Unknown Urine Glucose (UA) Negative (Negative) 09/23/24 Unknown Urine Ketones Trace (Negative) H 09/23/24 Unknown Urine Nitrite Negative (Negative) 09/23/24 Unknown Ur Leukocyte Esterase 2+ (Negative) H 09/23/24 Unknown Urine WBC (Auto) >50 /hpf (0-5) H 09/23/24 Unknown Urine RBC (Auto) 3-5 /hpf (0-2) H 09/23/24 Unknown U Hyaline Cast (Auto) 11-20 /lpf (0-2) H 09/23/24 Unknown U Epithel Cells (Auto) 3-5 /hpf (0-2) H 09/23/24 Unknown Urine Bacteria (Auto) None Seen (None Seen) 09/23/24 Unknown Blood Type O Positive 09/25/24 13:40 Antibody Screen NEGATIVE 09/25/24 13:40 09/27/24 Unknown Urine Culture - Preliminary Urine,Kidney No growth - Less than 1,000 colonies/mL, Final report to follow. 09/23/24 19:11 Aerobic Blood Culture - Preliminary Blood No growth in Aerobic bottle after 48 hours. Anaerobic Blood Culture - Preliminary No growth in Anaerobic bottle after 48 hours. 09/23/24 16:53 Aerobic Blood Culture - Preliminary Blood No growth in Aerobic bottle after 48 hours. Anaerobic Blood Culture - Preliminary No growth in Anaerobic bottle after 48 hours. 09/23/24 Unknown Urine Culture - Final Urine,Clean Catch Three types of organisms present, all low counts probable skin augie. No further identifications or sensitivities to follow. 09/28/24 09/28/24 10:58 07:18 POC Glucose 101 H 108 H Electrocardiogram Date: 09/23/24 Findings: + NSR @ (73) and + poor R wave progression Echocardiogram Date: 09/24/24 EF: 60-65% LV Function: normal Valvular Disease: + no significant valvular disease small loculated pericardial effusion - no signs of tamponade
--- NOTE | 2024-09-28 16:17 | GI REPORT ---
[facility] Patient: ZAHRAA MEYERS : 1950 Sex at : Female Age: 74 Years Procedure: Upper GI endoscopy Date: 09/28/2024 Attending Physician: Jermain Gutierrez MD Referring MD: Referred Self Indications: - Suspected upper gastrointestinal bleeding Medications: - Monitored Anesthesia Care Complications: - No immediate complications. Procedure: - Prior to the procedure, a History and Physical was performed, and patient medications and allergies were reviewed. The patient's tolerance of previous anesthesia was also reviewed. The risks and benefits of the procedure and the sedation options and risks were discussed with the patient. All questions were answered, and informed consent was obtained. [Anticoagulant Agents] [Days Prior to Procedure]. [ASA Grade]. After reviewing the risks and benefits, the patient was deemed in satisfactory condition to undergo the procedure. - The egd scope was introduced through the mouth and advanced to the second part of the duodenum. - The upper GI endoscopy was accomplished without difficulty. - The patient tolerated the procedure well. Findings: - The examined esophagus was normal. - The entire examined stomach was normal. Biopsies were taken with a cold forceps for Helicobacter pylori testing. - One non-bleeding cratered duodenal ulcer with no stigmata of bleeding was found in the first portion of the duodenum. The lesion was 6 mm in largest dimension. Impression: - Normal esophagus. - Normal stomach. Biopsied. - Non-bleeding duodenal ulcer with no stigmata of bleeding. Recommendation: - Resume previous diet. Continue PPI - Patient has a contact number available for emergencies. The signs and symptoms of potential delayed complications were discussed with the patient. Return to normal activities tomorrow. Written discharge instructions were provided to the patient. Procedure Code(s): - 11361, Esophagogastroduodenoscopy, flexible, transoral; with biopsy, single or multiple Diagnosis Code(s): - K26.9, Duodenal ulcer, unspecified as acute or chronic, without hemorrhage or perforation CPT(R) - 2023 copyright [employer]. All Rights Reserved. The CPT codes, CCI edits and ICD codes generated are intended as suggestions and were generated based on input data. These codes are preliminary and upon health screener review may be revised to meet current compliance and payer requirements. The provider is responsible for the final determination of appropriate codes, and modifiers. Jermain Gutierrez MD This document has been electronically signed. Note Initiated:09/28/2024 Note Completed:09/28/2024 4:17 PM [id number]
--- NOTE | 2024-09-28 16:35 | Anesthesiology Progress Note ---
Date of Service September 28, 2024 Anesthesia Post Procedure Vital Signs Vital Signs: Temp Pulse Pulse Resp BP BP Pulse Ox 09/28/24 16:29 74 16 124/63 93 09/28/24 16:14 72 16 121/60 92 09/28/24 15:59 66 12 92/53 L 92 09/28/24 15:10 97.5 F L 68 16 115/63 91 09/28/24 14:16 73 16 107/69 91 09/28/24 14:01 74 18 112/72 93 09/28/24 14:00 77 09/28/24 12:56 81 16 115/68 91 09/28/24 12:00 98.1 F 74 18 119/58 L 92 09/28/24 11:30 98.2 F 72 16 109/72 92 09/28/24 11:15 98.2 F 74 16 109/69 91 09/28/24 11:14 98.2 F 74 16 109/69 09/28/24 10:45 97.9 F 76 16 98/56 L 94 09/28/24 08:01 97.7 F 74 17 96/65 L 92 09/28/24 08:00 72 09/28/24 03:30 97.5 F L 71 18 90/55 L 92 09/28/24 00:46 98/54 L 09/28/24 00:00 77 09/27/24 23:25 97.3 F L 72 18 89/53 L 94 09/27/24 19:13 98.8 F 92 H 18 98/58 L 91 09/27/24 18:00 99.0 F O2 Del Method 09/28/24 16:29 Room Air 09/28/24 16:14 Room Air 09/28/24 15:59 Room Air 09/28/24 15:10 Room Air 09/28/24 14:16 09/28/24 14:01 09/28/24 14:00 09/28/24 12:56 09/28/24 12:00 09/28/24 11:30 09/28/24 11:15 09/28/24 11:14 09/28/24 10:45 09/28/24 08:01 Room Air 09/28/24 08:00 09/28/24 03:30 Room Air 09/28/24 00:46 09/28/24 00:00 06/30/25 23:25 Room Air 09/27/24 19:13 Room Air 09/27/24 18:00 Transfer of Care Handoff Completed per policy Notes Mental Status: alert / awake / arousable and participated in evaluation Patient Amnestic to Procedure: Yes Nausea / Vomiting: adequately controlled Pain: adequately controlled Airway Patency, RR, SpO2: stable & adequate BP & HR: stable & adequate Hydration State: stable & adequate Anesthetic Complications: no major complications apparent and Pt Satisfied with anesthetic care
[2024-09-28] MEDS: LIDOCAINE 2% 2 ML VIAL/AMP(20MG/ML) INFIL ONE ×2 (17:06)
[2024-09-28] MEDS: PROPOFOL IV EMULSION 10 MG/ML 20 ML VIAL IV ONE ×2 (17:06)
[2024-09-28 17:07] LABS: Hematocrit (blood only) 29.4 % (37.0-47.0); Hemoglobin 9.4 g/dl (12.0-16.0)
[2024-09-28] MEDS: ERTAPENEM 500MG 500 MG/5 ML SYR IV SCH (17:14)
[2024-09-28 20:19] LABS: Hematocrit (blood only) 25.8 % (37.0-47.0); Hemoglobin 8.3 g/dl (12.0-16.0)
--- NOTE | 2024-09-29 07:23 | Pharmacy Report ---
Pharmacy Glycemic Sign Off Nt - Date of Service September 29, 2024 - Assessment & Plan ASSESSMENT: * Pharmacy was consulted by Zuleika WYLIE on 09/23 for glycemic control and to write orders per [facility] inpatient glycemic control protocol. * Major changes made by pharmacy to antidiabetic regimen include: * added novolog scale * Patient has been receiving minimal to no insulin over the last 72 hours. PLAN FOR INPATIENT GLYCEMIC CONTROL: No changes needed to current regimen. * Reasonable to continue to hold basal insulin * Continue NovoLog per scale ACHS/Q6hrs while NPO * Goal range = 140-180 mg/dl * CF = 50 mg/dl/unit * CR = 1 unit for ever 30 g CHO consumed * Pharmacy is signing off of glycemic consult and will no longer be making adjustments to inpatient regimen. Please feel free to re-consult if needed. Mono wang.
[2024-09-29 07:28] LABS: Hematocrit (blood only) 27.2 % (37.0-47.0); Hemoglobin 8.5 g/dl (12.0-16.0); Mean Corpuscular Hemoglobin 28.7 pg (25.0-34.0); Mean Corpuscular Volume 91.9 fL (80.0-100.0); Platelet Count 146 K/uL (130-400); RDW Standard Deviation 49.1 fL (36.4-46.3); Red Blood Count 2.96 M/uL (4.20-5.40); White Blood Count 10.96 K/ul (4.8-10.8)
[2024-09-29 07:46] LABS: Anion Gap 4.0 (3-11); Blood Urea Nitrogen 21.0 mg/dl (6-23); Calcium 8.5 mg/dl (8.6-10.3); Carbon Dioxide 28.0 mmol/L (21-32); Chloride 106.0 mmol/L (98-107); Creatinine Clr Calc Pharmacy 29.5 ml/min; Glucose 95.0 mg/dl (70-99(Fasting)); Potassium 4.4 mmol/L (3.5-5.1); Sodium 138.0 mmol/L (136-145)
--- NOTE | 2024-09-29 09:40 | Nephrology Progress Note ---
Date of Service September 29, 2024 Assessment & Plan Admission and Anticipated Discharge Date Admission Date: September 23, 2024 Subjective Assessment & Plan (1) QUIQUE (acute kidney injury): Likely multifactorial from ATN ( setting of Pyelonephritis ) and still has low BP which delays renal recovery. So far Ureteric stent has not made an impact but could take few days. 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 Given no resp distress and RA no need for lasix though. Dont give IV fluids. Avoid NSAIDs was taking . Creat was 1.2 just few days ago and would count 1--1.2 as baseline. Support hemodynamic and duy avoid Low BP and Low o2. with PRBC --QUIQUE has peaked and labs better today. Creat down to 1.48. Good sign. even though npo no need for IV fluid as she does Appear vol Overload. BP is better today--not low anymore. (2) Ureteral obstruction: Appears foreign body/Infected stone as the Cause of rt Sided blockade and now S/p ureteric Stent. for now Appears to be holding fine. Creat did come down reviewed urology Consult as well as procedure note and in agreement (3) Urinary tract infection: On ertapenem. Do renal dosing sp given rising Creat. Current Blood and urine C/s reviewed and negative S---had PRBC for hgb of 6.6 and did have EGD showing Duodenal Ulcer. making urine. Labs better. NO new issues ROS--see Above HPI. 12 systems reviewed and negative Physical Exam Constitutional: Alert and no distress MM moist Neck: Supple. No JVD Respiratory: normal respiratory effort, lungs clear to auscultation Cardiovascular: RRR, no murmur, no edema Gastrointestinal (Abdomen): soft, nontender Neurologic: PERRL, EOMI, accommodation nl, no face palsy, no dysarthria Results & Data Vital Signs (Past 12 Hours) Vital Signs Temp Pulse Pulse Resp BP Pulse Ox O2 Del Method 09/29/24 07:33 36.6 C 71 18 147/72 H 93 Room Air 09/29/24 02:49 36.5 C 67 18 111/72 93 Room Air 09/29/24 00:00 68 09/28/24 22:47 36.5 C 63 18 100/61 94 Room Air
--- NOTE | 2024-09-29 11:40 | Gastroenterology Progress Note ---
Date of Service September 29, 2024 Assessment & Plan (1) Duodenal ulcer: Plan Patient is a 74-year-old woman presenting with urosepsis, bacteremia, hydronephrosis noted to have melena and significant anemia in the setting of chronic Excedrin use.EGD completed on 09/28/24 revealing a non-bleeding ulcer measuring 6mm. Biopsies pending for H.pylori. H/H stable with Hgb 8.5g/dl up from 8.3g/dl yesterday. (1) Duodenal Ulcer - NSAID related. - Continue Pantoprazole 40mg/day. - Recommend avoidance of NSAIDs, alcohol and tobacco products. - Recommend f/u CBC upon discharge with PCP to document return to normal ranges. - F/U in GI outpatient clinic in 6-8 weeks to review clinical response. Patient agreeable to this. Task generated to our office to arrance. - GI likely to sign off on the case. Please feel free to reach out with any concerns. Thank you kindly for the consultation. - Further recommendations to come with Supervising GI provider on medical rounds. Please see co-signature comments. Admission and Anticipated Discharge Date Admission Date: September 23, 2024 Supervising Physician Co-Signing Physician Notes I saw and examined this patient with our nurse practitioner and agree with her assessment and plan. Clinically stable no overt bleeding. Hemoglobin stable. Endoscopy revealed a healing duodenal ulcer with no stigmata. Suspect this was the cause for GI bleed. Continue pantoprazole twice daily. She will follow-up with GI as an outpatient. Subjective Patient is a 74-year-old woman presenting with urosepsis, bacteremia, hydronephrosis noted to have melena and significant anemia in the setting of chronic Excedrin use. EGD completed on 09/28/24 revealing a non-bleeding ulcer measuring 6mm. Biopsies pending for H.pylori. Recommended ongoing treatment with PPI with outpatient GI follow up. Today patient reports she's doing well. No concerns. Denies fevers, chills, dysphagia, abdominal pain, N/V/D, melena or hematochezia. Labs Hgb stable at 8.5g/dl. Yesterday Hgb was 8.3g/dl. EGD Dr. Gutierrez 09/28/24. Findings: - The examined esophagus was normal. - The entire examined stomach was normal. Biopsies were taken with a cold forceps for Helicobacter pylori testing. - One non-bleeding cratered duodenal ulcer with no stigmata of bleeding was found in the first portion of the duodenum. The lesion was 6 mm in largest dimension. Impression: - Normal esophagus. - Normal stomach. Biopsied. - Non-bleeding duodenal ulcer with no stigmata of bleeding. Recommendation: - Resume previous diet. Continue PPI - Patient has a contact number available for emergencies. The signs and symptoms of potential delayed complications were discussed with the patient. Return to normal activities tomorrow. Written discharge instructions were provided to the patient. Review of Systems Review of Systems: See HPI Physical Exam Physical Exam: Constitutional: NAD. Alert. Answering questions appropriately. Respiratory: Breathing is even, non-labored. Lungs trevino are clear to auscultation anteriorly. Cardiovascular: Regular Rate and Rhythm, no murmurs, rubs or gallops appreciated. Gastrointestinal (Abdomen): Normoactive bowel sounds x4, soft, non-distended, non-tender. Musculoskeletal: Lying in bed comfortably. No peripheral edema. Results & Data Results & Data Vital Signs (Past 12 Hours) Vital Signs Temp Pulse Pulse Resp BP Pulse Ox O2 Del Method 09/29/24 11:37 98.1 F 68 18 131/75 95 Room Air 09/29/24 08:00 71 09/29/24 07:33 97.9 F 71 18 147/72 H 93 Room Air 09/29/24 02:49 97.7 F 67 18 111/72 93 Room Air 09/29/24 00:00 68 Laboratory Results Laboratory Results - last 48 hr 09/25/24 09/27/24 09/27/24 13:40 15:54 20:02 WBC RBC Hgb Hct MCV MCH MCHC RDW Std Deviation RDW Coeff of Marek Plt Count MPV Sodium Potassium Chloride Carbon Dioxide Anion Gap BUN Creatinine Est Cr Clr Drug Dosing eGFR BUN/Creatinine Ratio Glucose POC Glucose 144 H 199 H Calcium Procalcitonin Blood Type O Positive Antibody Screen NEGATIVE Crossmatch See Detail 09/28/24 09/28/24 09/28/24 06:58 07:18 10:58 WBC 17.92 H RBC 2.32 L Hgb 6.6 L* Hct 21.2 L MCV 91.4 MCH 28.4 MCHC 31.1 L RDW Std Deviation 48.5 H RDW Coeff of Marek 14.7 H Plt Count 124 L MPV 10.6 Sodium 138 Potassium 4.2 Chloride 107 Carbon Dioxide 27 Anion Gap 4 BUN 22 Creatinine 1.78 H Est Cr Clr Drug Dosing 24.1 eGFR 29.59 BUN/Creatinine Ratio 12.4 Glucose 111 H POC Glucose 108 H 101 H Calcium 8.4 L Procalcitonin 52.40 H Blood Type Antibody Screen Crossmatch 09/28/24 09/28/24 09/28/24 16:48 16:51 20:07 WBC RBC Hgb 9.4 L 8.3 L Hct 29.4 L 25.8 L MCV MCH MCHC RDW Std Deviation RDW Coeff of Marek Plt Count MPV Sodium Potassium Chloride Carbon Dioxide Anion Gap BUN Creatinine Est Cr Clr Drug Dosing eGFR BUN/Creatinine Ratio Glucose POC Glucose 77 Calcium Procalcitonin Blood Type Antibody Screen Crossmatch 09/28/24 09/29/24 09/29/24 20:37 06:28 07:01 WBC 10.96 H RBC 2.96 L Hgb 8.5 L Hct 27.2 L MCV 91.9 MCH 28.7 MCHC 31.3 L RDW Std Deviation 49.1 H RDW Coeff of Marek 14.6 H Plt Count 146 MPV 9.7 Sodium 138 Potassium 4.4 Chloride 106 Carbon Dioxide 28 Anion Gap 4 BUN 21 Creatinine 1.48 H D Est Cr Clr Drug Dosing 29.5 eGFR 36.93 BUN/Creatinine Ratio 14.2 Glucose 95 POC Glucose 114 H 100 H Calcium 8.5 L Procalcitonin Blood Type Antibody Screen Crossmatch 09/29/24 11:28 WBC RBC Hgb Hct MCV MCH MCHC RDW Std Deviation RDW Coeff of Marek Plt Count MPV Sodium Potassium Chloride Carbon Dioxide Anion Gap BUN Creatinine Est Cr Clr Drug Dosing eGFR BUN/Creatinine Ratio Glucose POC Glucose 193 H Calcium Procalcitonin Blood Type Antibody Screen Crossmatch PG Care Time/CCT Total # of Minutes Spent Total Time Spent with Patient: Total time spent is greater than 50% in coordination of care (as documented) at patient's floor/unit and/or counseling patient: Coding Level of Care Code 75358 SUB INP/OBS CARE 235MIN Diagnoses Duodenal ulcer K26.9
--- NOTE | 2024-09-29 12:26 | Hospitalist Progress Note ---
Date of Service September 29, 2024 Assessment & Plan (1) Complicated UTI (urinary tract infection): Plan 74-year-old lady with PMH of T2DM, HLD, CIERA, HTN presents to the ED with complaint of progressive weakness since last 5 to 6 days Recent hospitalization in [place] while vacationing there and was treated Proteus mirabilis bacteremia and was treated with IV ertapenem which she had completed about 5-6 days prior Complicated UTI Obstructive uropathy Secondary to ureteral debris/stricture Likely renal pelvic abscess--POA CT ABD:Right sided mild hydroureteronephrosis upstream to a 5 mm high density material within the proximal right ureter that may represent an obstructing stone. S/P Right ureteroscopy, ureteral dilation, basket extraction of foreign body versus stone, urine aspiration right renal pelvis, and stent placement by Dr. Wood on 09/27/24 Urine culture negative so far Blood cultures: negative for 24h Continue IV ertapenem RN to get records from [facility] about recent hospitalization in August and culture results Bilateral pleural effusion Acute diastolic heart failure Likely multifactorial secondary to recent sepsis/IV fluids, discontinuation of HCTZ and diastolic heart failure Chest CT: Dependent atelectasis bilaterally. Patchy densities in lnyen-mrbxpax-kejo-left upper lobes may represent infectious/inflammatory process. Moderate bilateral pleural effusions. Elevated BNP ECHO: EF 60 to 65%. Grade 1 diastolic dysfunction. Small loculated anterior right lateral pericardial effusion. Findings do not suggest cardiac tamponade. Moderate size left pleural effusion Monitor I's and O's, daily weight Got IV lasix which was stopped with worsening renal function Appreciate pulmonary input: No indication for thoracentesis currently Saturating well on room air Melena from Upper GI bleed Duodenal Ulcer Normocytic anemia Iron deficiency Acute blood loss anemia CT ABD:Extensive colonic diverticulosis without evidence of diverticulitis. Peripheral smear: No features of myelodysplasia, mild rouleaux Avoid anticoagulation Hb was 6.6 on 09/28 s/p 1 pRBC S/p EGD on 09/28 which showed a non-bleeding ulcer measuring 6mm. Biopsies negative for H.pylori. GI recommended ongoing treatment with PPI with outpatient GI follow up. Monitor H&H and transfuse as needed Hb stable so far Continue PPI Acute kidney injury Likely due to ATN and obstructive uropathy Baseline creatinine 1-1.2 Improving. Cr is 1.48 today Avoid NSAIDs Monitor volume status Appreciate nephrology input Avoid nephrotoxic agents as able Progressive weakness/deconditioning Recent complicated UTI/sepsis Normal TSH Continue PT OT, fall precautions Left rib fracture--POA Ambulatory dysfunction History of multiple falls as per family -CT showed:Recent appearing traumatic fracture of the left 12th rib Currently asymptomatic Fall precautions PT OT as able DM II Intermittent hypoglycemia earlier this hospital stay now resolved HbA1c 7.5 Continue to hold long-acting insulin--need adjustment of insulin dose on discharge Insulin sliding scale--adjust to minimize hypoglycemic episodes Glycemic pharmacist on board agricultural extension educator recs noted Hypertension Previously on lisinopril, HCTZ which were discontinued on recent hospitalization secondary to hypotension, sepsis Monitor blood pressure off medications Blood pressure stable at this time Dyslipidemia: Continue home simvastatin Insomnia: Continue home trazodone DVT Px:SCDs for now Code Status Full code Called daughter and updated I spent a total of 55 minutes coordinating, documenting and providing care for this patient excluding time spent in performance of separately billed services Admission and Anticipated Discharge Date Admission Date: September 23, 2024 Subjective Patient seen and examined Reports feeling better today No nausea, vomiting, abd pain No hematochezia today Physical Exam Constitutional: + well hydrated; no acute distress Eyes: PERRL, conjunctivae normal, anicteric sclerae ENMT: external ear and nose normal, oropharynx normal Respiratory: normal respiratory effort, lungs clear to auscultation Cardiovascular: Rate/Rhythm: regular rate and regular rhythm Gastrointestinal (Abdomen): normal bowel sounds, soft, nontender, no hepatosplenomegaly Musculoskeletal: No pedal edema Neurologic: PERRL, EOMI, accommodation nl, no face palsy, no dysarthria Psychiatric: A+Ox3, euthymic affect Results & Data Results & Data Vital Signs (Past 12 Hours) Vital Signs Temp Pulse Pulse Resp BP Pulse Ox O2 Del Method 09/29/24 11:37 36.7 C 68 18 131/75 95 Room Air 09/29/24 08:00 71 09/29/24 07:33 36.6 C 71 18 147/72 H 93 Room Air 09/29/24 02:49 36.5 C 67 18 111/72 93 Room Air Laboratory Results Abnormal lab results 09/28/24 09/28/24 09/28/24 Range/Units 16:51 20:07 20:37 WBC (4.8-10.8) K/ul RBC (4.20-5.40) M/uL Hgb 9.4 L 8.3 L (12.0-16.0) g/dl Hct 29.4 L 25.8 L (37.0-47.0) % MCHC (32.0-36.0) g/dL RDW Std Deviation (36.4-46.3) fL RDW Coeff of Marek (11.5-14.5) % Creatinine (0.6-1.2) mg/dl POC Glucose 114 H (70-99) mg/dl Calcium (8.6-10.3) mg/dl 09/29/24 09/29/24 09/29/24 Range/Units 06:28 07:01 11:28 WBC 10.96 H (4.8-10.8) K/ul RBC 2.96 L (4.20-5.40) M/uL Hgb 8.5 L (12.0-16.0) g/dl Hct 27.2 L (37.0-47.0) % MCHC 31.3 L (32.0-36.0) g/dL RDW Std Deviation 49.1 H (36.4-46.3) fL RDW Coeff of Marek 14.6 H (11.5-14.5) % Creatinine 1.48 H D (0.6-1.2) mg/dl POC Glucose 100 H 193 H (70-99) mg/dl Calcium 8.5 L (8.6-10.3) mg/dl
[2024-09-30 06:37] LABS: Albumin 2.3 g/dL (3.8-4.8); Beta-1-Globulin 0.4 g/dL (0.4-0.6); Gamma Globulin 1.3 g/dL (0.8-1.7); Total Protein 5.5 g/dL (6.1-8.1)
[2024-09-30 08:23] LABS: Hematocrit (blood only) 29.9 % (37.0-47.0); Hemoglobin 9.4 g/dl (12.0-16.0); Mean Corpuscular Hemoglobin 28.6 pg (25.0-34.0); Mean Corpuscular Volume 90.9 fL (80.0-100.0); Platelet Count 165 K/uL (130-400); RDW Standard Deviation 48.0 fL (36.4-46.3); Red Blood Count 3.29 M/uL (4.20-5.40); White Blood Count 7.47 K/ul (4.8-10.8)
[2024-09-30 08:42] LABS: Anion Gap 4.0 (3-11); Blood Urea Nitrogen 17.0 mg/dl (6-23); Calcium 8.8 mg/dl (8.6-10.3); Carbon Dioxide 28.0 mmol/L (21-32); Chloride 107.0 mmol/L (98-107); Creatinine Clr Calc Pharmacy 38.9 ml/min; Glucose 126.0 mg/dl (70-99(Fasting)); Potassium 4.1 mmol/L (3.5-5.1); Sodium 139.0 mmol/L (136-145)
--- NOTE | 2024-09-30 10:54 | Hospitalist Progress Note ---
Date of Service September 30, 2024 Assessment & Plan (1) Complicated UTI (urinary tract infection): Plan 74-year-old lady with PMH of T2DM, HLD, CIERA, HTN presents to the ED with complaint of progressive weakness since last 5 to 6 days Recent hospitalization in [place] while vacationing there and was treated Proteus mirabilis bacteremia and was treated with IV ertapenem which she had completed about 5-6 days prior Complicated UTI Obstructive uropathy Secondary to ureteral debris/stricture Likely renal pelvic abscess--POA CT ABD:Right sided mild hydroureteronephrosis upstream to a 5 mm high density material within the proximal right ureter that may represent an obstructing stone. S/P Right ureteroscopy, ureteral dilation, basket extraction of foreign body versus stone, urine aspiration right renal pelvis, and stent placement by Dr. Wood on 09/27/24 Urine culture negative so far Blood cultures: negative for 24h Continue IV ertapenem RN to get records from [facility] about recent hospitalization in August and culture results Bilateral pleural effusion Acute diastolic heart failure Likely multifactorial secondary to recent sepsis/IV fluids, discontinuation of HCTZ and diastolic heart failure Chest CT: Dependent atelectasis bilaterally. Patchy densities in ksrgi-ahfqluf-uevr-left upper lobes may represent infectious/inflammatory process. Moderate bilateral pleural effusions. Elevated BNP ECHO: EF 60 to 65%. Grade 1 diastolic dysfunction. Small loculated anterior right lateral pericardial effusion. Findings do not suggest cardiac tamponade. Moderate size left pleural effusion Monitor I's and O's, daily weight Got IV lasix which was stopped with worsening renal function Appreciate pulmonary input: No indication for thoracentesis currently Saturating well on room air Melena from Upper GI bleed Duodenal Ulcer Normocytic anemia Iron deficiency Acute blood loss anemia CT ABD:Extensive colonic diverticulosis without evidence of diverticulitis. Peripheral smear: No features of myelodysplasia, mild rouleaux Avoid anticoagulation Hb was 6.6 on 09/28 s/p 1 pRBC S/p EGD on 09/28 which showed a non-bleeding ulcer measuring 6mm. Biopsies negative for H.pylori. GI recommended ongoing treatment with PPI with outpatient GI follow up. Monitor H&H and transfuse as needed Hb stable so far Continue PPI Acute kidney injury Likely due to ATN and obstructive uropathy Baseline creatinine 1-1.2 Improved. Cr is 1.12 today Avoid NSAIDs Monitor volume status Appreciate nephrology input Avoid nephrotoxic agents as able Progressive weakness/deconditioning Recent complicated UTI/sepsis Normal TSH Continue PT OT, fall precautions Left rib fracture--POA Ambulatory dysfunction History of multiple falls as per family -CT showed:Recent appearing traumatic fracture of the left 12th rib Currently asymptomatic Fall precautions PT OT as able DM II Intermittent hypoglycemia earlier this hospital stay now resolved HbA1c 7.5 Continue to hold long-acting insulin--need adjustment of insulin dose on discharge Insulin sliding scale--adjust to minimize hypoglycemic episodes Glycemic pharmacist on board medical orderly recs noted Patient's RN DIABETES regimen will be adjusted or changed on discharge Hypertension Previously on lisinopril, HCTZ which were discontinued on recent hospitalization secondary to hypotension, sepsis Monitor blood pressure off medications Blood pressure stable at this time Dyslipidemia: Continue home simvastatin Insomnia: Continue home trazodone DVT Px:SCDs for now Code Status Full code I spent a total of 50 minutes coordinating, documenting and providing care for this patient excluding time spent in performance of separately billed services Admission and Anticipated Discharge Date Admission Date: September 23, 2024 Subjective Patient seen and examined Reports weakness continues to improve Appetite improving BM yesterday was not bloody Physical Exam Constitutional: + well hydrated; no acute distress Eyes: PERRL, conjunctivae normal, anicteric sclerae ENMT: external ear and nose normal, oropharynx normal Respiratory: normal respiratory effort, lungs clear to auscultation Cardiovascular: Rate/Rhythm: regular rate and regular rhythm Gastrointestinal (Abdomen): normal bowel sounds, soft, nontender, no hepatosplenomegaly Musculoskeletal: No pedal edema Neurologic: PERRL, EOMI, accommodation nl, no face palsy, no dysarthria Psychiatric: A+Ox3, euthymic affect Results & Data Results & Data Vital Signs (Past 12 Hours) Vital Signs Temp Pulse Pulse Resp BP Pulse Ox O2 Del Method 09/30/24 08:00 69 09/30/24 07:49 36.7 C 76 18 139/74 94 Room Air 09/30/24 04:22 36.9 C 65 18 123/66 96 Room Air 09/29/24 23:26 36.7 C 66 20 127/67 96 Room Air 09/29/24 23:07 67 Laboratory Results Abnormal lab results 09/28/24 09/29/24 09/29/24 Range/Units 06:58 15:53 20:20 RBC (4.20-5.40) M/uL Hgb (12.0-16.0) g/dl Hct (37.0-47.0) % MCHC (32.0-36.0) g/dL RDW Std Deviation (36.4-46.3) fL Glucose (70-99(Fasting)) mg/dl POC Glucose 135 H 188 H (70-99) mg/dl Total Protein (PEP) 5.5 L (6.1-8.1) g/dL Albumin (PEP) 2.3 L (3.8-4.8) g/dL Pwyhy-7-Heybpqeua 0.5 H (0.2-0.3) g/dL 09/30/24 09/30/24 09/30/24 Range/Units 07:11 08:02 11:15 RBC 3.29 L (4.20-5.40) M/uL Hgb 9.4 L (12.0-16.0) g/dl Hct 29.9 L (37.0-47.0) % MCHC 31.4 L (32.0-36.0) g/dL RDW Std Deviation 48.0 H (36.4-46.3) fL Glucose 126 H (70-99(Fasting)) mg/dl POC Glucose 108 H 125 H (70-99) mg/dl Total Protein (PEP) (6.1-8.1) g/dL Albumin (PEP) (3.8-4.8) g/dL Sbovd-2-Pyqfgbpsp (0.2-0.3) g/dL
[2024-09-30] MEDS: ERTAPENEM 1000MG 1,000 MG/10 ML SYR IV SCH (18:14)
[2024-10-01 07:17] LABS: Hematocrit (blood only) 28.3 % (37.0-47.0); Hemoglobin 9.5 g/dl (12.0-16.0); Mean Corpuscular Hemoglobin 30.2 pg (25.0-34.0); Mean Corpuscular Volume 89.8 fL (80.0-100.0); Platelet Count 174 K/uL (130-400); RDW Standard Deviation 47.0 fL (36.4-46.3); Red Blood Count 3.15 M/uL (4.20-5.40); White Blood Count 5.83 K/ul (4.8-10.8)
--- NOTE | 2024-10-01 07:40 | Urology Progress Note ---
Date of Service October 01, 2024 Assessment & Plan (1) Ureteral obstruction: (2) Urinary tract infection: (3) QUIQUE (acute kidney injury): Plan Patient postop day #4 cystoscopy with bilateral retrograde pyelograms, right ureteroscopy, ureteral dilation, basket extraction of foreign body versus stone, urine aspiration right renal pelvis and stent placement Febrile after procedure. Continued on broad spectrum coverage. Had severe debris obstructing right ureter with purulent urine entrapped proximal to obstruction. Urine culture from kidney aspirate no growth Tolerating right ureteral stent with mild bother Continue broad-spectrum antibiotics and narrow per sensitivity data available Continue supportive care, antibiotics and medical management per hospital medicine service Plan to maintain ureteral stent for a few weeks and follow-up in clinic with repeat imaging Will arrange outpatient follow-up with our service Admission and Anticipated Discharge Date Admission Date: September 23, 2024 Subjective Patient admitted with pyelonephritis and UTI issues. Found to have severe obstruction with stricture. Likely matrix stones. Patient has been dealing with persistent issues. Has been on broad-spectrum IV antibiotics for coverage. POD 4 s/p stone/debris extraction, ureteroscopy, and drainage of obstructed right kidney. Has been undergoing supportive care with antibiotic therapy with oral medications, IV medications, IV fluids, and oral intake. Does have considerable ongoing issues with ill feelings and fatigue but has not had severe or considerable increase in pain or major issues. Had fevers and SIRS after procedure. Has not developed severe vomiting or other issues. Has not experienced fever or chills. Has been tolerating oral medications. Is tolerating fluids. Has noticed some significant frequency and urgency. Does have pain and discomfort in the flank and back. Has not had severe or intractable pain in the back and flank. Does have occasional burning and irritation. No severe episodes or major changes. Review of Systems Review of Systems: All systems reviewed & are unremarkable except as noted in Subjective Physical Exam Physical Exam: General: Alert in no acute distress. HEENT: Normocephalic Atraumatic. Inspection normal. Cranial Nerves 2-12 Grossly intact. Normal inspection of face. Normal inspection of neck. Psychologic: Normal affect. Respiratory: Nonlabored. No use of accessory muscles. No tachypnea or dyspnea. Cardiovascular: No tachycardia Skin: Plain Dealing and Dry. No rashes or visible lesions. Extremities/Lymphatics: No edema Abdomen: Soft Non-distended. No rebound or guarding. Results & Data Vital Signs (Past 12 Hours) Vital Signs Temp Pulse Resp BP Pulse Ox O2 Del Method 10/01/24 02:31 36.7 C 69 18 131/75 97 Room Air 09/30/24 22:31 36.7 C 60 18 128/79 96 Room Air PG Care Time/CCT Total # of Minutes Spent Total Time Spent with Patient: Total time spent is greater than 50% in coordination of care (as documented) at patient's floor/unit and/or counseling patient: Coding Level of Care Code 68121 SUB INP/OBS CARE 2/35MIN Diagnoses Ureteral obstruction N13.5 Urinary tract infection N39.0 QUIQUE (acute kidney injury) N17.9
[2024-10-01 07:49] LABS: Anion Gap 3.0 (3-11); Blood Urea Nitrogen 15.0 mg/dl (6-23); Calcium 8.7 mg/dl (8.6-10.3); Carbon Dioxide 28.0 mmol/L (21-32); Chloride 109.0 mmol/L (98-107); Creatinine Clr Calc Pharmacy 37.6 ml/min; Glucose 100.0 mg/dl (70-99(Fasting)); Potassium 3.9 mmol/L (3.5-5.1); Sodium 140.0 mmol/L (136-145)
--- NOTE | 2024-10-01 10:41 | Hospitalist Progress Note ---
Date of Service October 01, 2024 Assessment & Plan (1) Complicated UTI (urinary tract infection): Plan 74-year-old lady with PMH of T2DM, HLD, CIERA, HTN presents to the ED with complaint of progressive weakness since last 5 to 6 days Recent hospitalization in [place] while vacationing there and was treated Proteus mirabilis bacteremia and was treated with IV ertapenem which she had completed about 5-6 days prior Complicated UTI Obstructive uropathy Secondary to ureteral debris/stricture Likely renal pelvic abscess--POA CT ABD:Right sided mild hydroureteronephrosis upstream to a 5 mm high density material within the proximal right ureter that may represent an obstructing stone. S/P Right ureteroscopy, ureteral dilation, basket extraction of foreign body versus stone, urine aspiration right renal pelvis, and stent placement by Dr. Wood on 09/27/24 Urine culture negative so far Blood cultures: negative for 24h Continue IV ertapenem to complete 10 days of treatment by tomorrow Bilateral pleural effusion Acute diastolic heart failure Likely multifactorial secondary to recent sepsis/IV fluids, discontinuation of HCTZ and diastolic heart failure Chest CT: Dependent atelectasis bilaterally. Patchy densities in ctdbr-hecswin-kjgc-left upper lobes may represent infectious/inflammatory process. Moderate bilateral pleural effusions. Elevated BNP ECHO: EF 60 to 65%. Grade 1 diastolic dysfunction. Small loculated anterior right lateral pericardial effusion. Findings do not suggest cardiac tamponade. Moderate size left pleural effusion Monitor I's and O's, daily weight Got IV lasix which was stopped with worsening renal function Appreciate pulmonary input: No indication for thoracentesis currently Saturating well on room air Melena from Upper GI bleed Duodenal Ulcer Normocytic anemia Iron deficiency Acute blood loss anemia CT ABD:Extensive colonic diverticulosis without evidence of diverticulitis. Peripheral smear: No features of myelodysplasia, mild rouleaux Avoid anticoagulation Hb was 6.6 on 09/28 s/p 1 pRBC S/p EGD on 09/28 which showed a non-bleeding ulcer measuring 6mm. Biopsies negative for H.pylori. GI recommended ongoing treatment with PPI with outpatient GI follow up. Hb stable so far Continue PPI Acute kidney injury Likely due to ATN and obstructive uropathy Baseline creatinine 1-1.2 Improved. Cr is 1.16 today Avoid NSAIDs Monitor volume status Appreciate nephrology input Avoid nephrotoxic agents as able Progressive weakness/deconditioning Recent complicated UTI/sepsis Normal TSH Continue PT OT, fall precautions Left rib fracture--POA Ambulatory dysfunction History of multiple falls as per family -CT showed:Recent appearing traumatic fracture of the left 12th rib Currently asymptomatic Fall precautions PT OT as able DM II Intermittent hypoglycemia earlier this hospital stay now resolved HbA1c 7.5 Continue to hold long-acting insulin--need adjustment of insulin dose on discharge Insulin sliding scale--adjust to minimize hypoglycemic episodes Glycemic pharmacist on board coding educator stefano noted Discussed this with daughter today. She will prefer patient continue lantus at lower dose. Will do 5U daily Patient will keep home BG log for PCP to make adjustments as needed Hypertension Previously on lisinopril, HCTZ which were discontinued on recent hospitalization secondary to hypotension, sepsis Monitor blood pressure off medications Blood pressure stable at this time Dyslipidemia: Continue home simvastatin Insomnia: Continue home trazodone DVT Px:SCDs for now Code Status Full code Called daughter and updated her I spent a total of 50 minutes coordinating, documenting and providing care for this patient excluding time spent in performance of separately billed services Admission and Anticipated Discharge Date Admission Date: September 23, 2024 Subjective Patient seen and examined No new complaints today Physical Exam Constitutional: + well hydrated; no acute distress Eyes: PERRL, conjunctivae normal, anicteric sclerae ENMT: external ear and nose normal, oropharynx normal Respiratory: normal respiratory effort, lungs clear to auscultation Cardiovascular: Rate/Rhythm: regular rate and regular rhythm Gastrointestinal (Abdomen): normal bowel sounds, soft, nontender, no hepatosplenomegaly Musculoskeletal: No pedal edema Neurologic: PERRL, EOMI, accommodation nl, no face palsy, no dysarthria Psychiatric: A+Ox3, euthymic affect Results & Data Results & Data Vital Signs (Past 12 Hours) Vital Signs Temp Pulse Pulse Resp BP Pulse Ox O2 Del Method 10/01/24 08:00 61 10/01/24 07:43 36.4 C L 72 18 153/84 H 95 Room Air 10/01/24 02:31 36.7 C 69 18 131/75 97 Room Air Laboratory Results Abnormal lab results 09/30/24 09/30/24 10/01/24 Range/Units 16:26 20:07 06:52 RBC 3.15 L (4.20-5.40) M/uL Hgb 9.5 L (12.0-16.0) g/dl Hct 28.3 L (37.0-47.0) % RDW Std Deviation 47.0 H (36.4-46.3) fL Chloride 109 H (98-107) mmol/L Glucose 100 H (70-99(Fasting)) mg/dl POC Glucose 161 H 134 H (70-99) mg/dl Procalcitonin (0-0.5) ng/ml 10/01/24 10/01/24 10/01/24 Range/Units 07:12 09:48 11:18 RBC (4.20-5.40) M/uL Hgb (12.0-16.0) g/dl Hct (37.0-47.0) % RDW Std Deviation (36.4-46.3) fL Chloride (98-107) mmol/L Glucose (70-99(Fasting)) mg/dl POC Glucose 104 H 124 H (70-99) mg/dl Procalcitonin 7.63 H (0-0.5) ng/ml
[2024-10-01] MEDS ORDERED: ERTAPENEM 1000MG 1,000 MG/10 ML SYR IV SCH (12:00)
[2024-10-02 06:12] VITALS: TEMP 97.9
[2024-10-02 07:39] VITALS: RESP 17; O2SAT 95
[2024-10-02] MEDS: ERTAPENEM 1000MG 1,000 MG/10 ML SYR IV SCH (09:44)
--- NOTE | 2024-10-02 09:44 | Discharge Summary ---
Date of Service October 02, 2024 Admission HPI Per Admitting Provider The patient is a very pleasant 74-year-old woman with multiple comorbidities including type 2 diabetes, sleep apnea, hypertension who presents with increased weakness, found to have UTI with bacteremia/urosepsis and hydronephrosis. She presents with generalized malaise, weakness, night sweats. She notes 2 episodes of black stools with most recent normal brown stool this morning in the background of daily Excedrin use. She denies any nausea, vomiting, odynophagia, dysphagia, early satiety, weight loss or any bowel irregularity. She notes that her last colonoscopy was several years ago. CT of the abdomen pelvis 09/25/2024 without IV contrast shows diverticular disease without observable bleeding. Exam is limited due to the lack of IV contrast. Hemoglobin was 7.5 on presentation. Admission Exam Per Admitting Provider GENERAL: Alert and oriented x3. NAD, on RA. HEENT: No pallor, no icterus. Pupils equal, round and reactive to light. Oral mucosa moist. NECK: No JVD, no neck masses. HEART: S1 and S2 heard. Regular rate and rhythm. No murmur, no gallop. RESPIRATORY SYSTEM: Normal AP diameter. No accessory muscle use. No wheezing, no crackles. ABDOMEN: Soft, bowel sounds present, nontender, no distention. CENTRAL NERVOUS SYSTEM: No facial droop. Speech is clear. Obeys simple commands. Moves extremities. EXTREMITIES: No edema, no erythema seen. 1+ ble ankle edema. Principal Diagnosis Complicated urinary tract infection Status post stent placement Duodenal ulcer Discharge Exam Constitutional + well hydrated; no acute distress Eyes PERRL, conjunctivae normal, anicteric sclerae ENMT external ear and nose normal, oropharynx normal Respiratory normal respiratory effort, lungs clear to auscultation Cardiovascular Rate/Rhythm: regular rate and regular rhythm Gastrointestinal (Abdomen) normal bowel sounds, soft, nontender, no hepatosplenomegaly Musculoskeletal No pedal edema Neurologic PERRL, EOMI, accommodation nl, no face palsy, no dysarthria Psychiatric A+Ox3, euthymic affect Discharge Data Allergies Allergy/AdvReac Type Severity Reaction Status Date / Time metformin AdvReac Intermediate Diarrhea Verified 09/28/24 15:08 Consultations 09/23/24 19:16 ED Decision to Admit Stat 09/26/24 07:00 Consult Gastroenterology Routine 09/26/24 08:09 Consult Urology Routine 09/26/24 08:11 Consult Pulmonology Routine 09/28/24 08:34 Consult Nephrology Routine Procedures Performed Operation Date: 09/28/24 17:50 Actual Procedures p EGD Biopsy Cytology - Jermain Gutierrez MD Ordered Studies 09/23/24 15:57 CT head/brain wo con Stat 09/23/24 19:18 CT chest diagnostic wo con Urgent 09/25/24 15:17 CT Abd and Pelvis [CT abd pelvis wo con] Routine 09/27/24 FL retrograde includes kub Routine Hospital Course (1) Complicated UTI (urinary tract infection): Plan 74-year-old lady with PMH of T2DM, HLD, CIERA, HTN presents to the ED with complaint of progressive weakness since last 5 to 6 days Recent hospitalization in [place] while vacationing there and was treated Proteus mirabilis bacteremia and was treated with IV ertapenem which she had completed about 5-6 days prior Complicated UTI Obstructive uropathy Secondary to ureteral debris/stricture Likely renal pelvic abscess--POA CT ABD:Right sided mild hydroureteronephrosis upstream to a 5 mm high density material within the proximal right ureter that may represent an obstructing stone. S/P Right ureteroscopy, ureteral dilation, basket extraction of foreign body versus stone, urine aspiration right renal pelvis, and stent placement by Jackeline Reyna on 09/27/24 Urine culture on admission and urine culture from cystoscopy are negative Blood cultures: negative She completed 10 days of IV ertapenem today prior to discharge Bilateral pleural effusion Acute diastolic heart failure Likely multifactorial secondary to recent sepsis/IV fluids, discontinuation of HCTZ and diastolic heart failure Chest CT: Dependent atelectasis bilaterally. Patchy densities in kpvza-nilevsz-laii-left upper lobes may represent infectious/inflammatory process. Moderate bilateral pleural effusions. Elevated BNP ECHO: EF 60 to 65%. Grade 1 diastolic dysfunction. Small loculated anterior right lateral pericardial effusion. Findings do not suggest cardiac tamponade. Moderate size left pleural effusion Monitor I's and O's, daily weight Got IV diuresis with lasix which was stopped with worsening renal function Pulmonology evaluated: No indication for thoracentesis currently Saturating well on room air Melena from Upper GI bleed Duodenal Ulcer Normocytic anemia Iron deficiency Acute blood loss anemia CT ABD:Extensive colonic diverticulosis without evidence of diverticulitis. Peripheral smear: No features of myelodysplasia, mild rouleaux Hb was 6.6 on 09/28 s/p 1 pRBC S/p EGD on 09/28 which showed a non-bleeding ulcer measuring 6mm. Biopsies negative for H.pylori. GI recommended ongoing treatment with PPI with outpatient GI follow up in 6 weeks Hb stable so far Discharged on po pantoprazole 40mg BID Acute kidney injury Likely due to ATN and obstructive uropathy Baseline creatinine 1-1.2 QUIQUE resolved Progressive weakness/deconditioning Recent complicated UTI/sepsis Normal TSH Had PT/OT inpatient Continue home health/PT Left rib fracture--POA Ambulatory dysfunction History of multiple falls as per family -CT showed:Recent appearing traumatic fracture of the left 12th rib Currently asymptomatic DM II Intermittent hypoglycemia earlier this hospital stay now resolved HbA1c 7.5 Patient had diabetes education. DM educator provided Glucometer Based on her glucose trend and insulin requirements inpatient, her home lantus was reduced to 5U daily on discharge Patient advised to keep a home blood glucose log for her PCP Hypertension Previously on lisinopril, HCTZ which were discontinued on recent hospitalization secondary to hypotension, sepsis BP stable at this time Advised to keep a home BP log for her PCP Dyslipidemia: Continue home simvastatin Total Time Total Time Spent Total Time Spent (In Minutes): 45 Total Time Includes: Examination of the Patient, Discharge Planning and Medication Reconciliation Discharge Plan Discharge Items Patient Disposition: Home - Self-Care Reason For Visit: UTI Discharge Diagnosis: Complicated urinary tract infection Status post stent placement Duodenal ulcer Condition on Discharge: Fair Activity: Resume your previous activity Non-emergency contact: Primary Care Provider Call non-emergency contact if: you have any medication questions Follow-up/Referrals: Kiran Wood DO [Physician] - Roxanne Sanford DO [Primary Care Provider] - 10/11/24 11:00 am (Date & Time 10/11/2024 11:00 AM Provider: Roxanne Sanford DO [facility]) Diet: Carb Consistent or DM2 Addtl Attending Provider Instructions: Mrs Berkowitz You were hospitalized and managed for the above listed diagnoses. You completed IV antibiotics in the hospital. You had upper endoscopy which showed a duodenal ulcer. You were started on pantoprazole 40mg twice a day. Please ensure follow up with Gastroenterology in 6-8 weeks to follow up recovery. You had stent placed by Urology. Please ensure follow up with Urology clinic. Based on your insulin requirements in the hospital, your home insulin glargine/lantus was reduced to 5 Units daily. Please keep a log of your home blood pressure and home blood glucose measurements for your Primary Doctor. Please ensure follow up with your Primary Doctor. It was a pleasure taking care of you. Pending Studies at Discharge: No Stand-Alone Forms: [facility], Smoking Cessation Medications and DC Order Prescriptions: New (DME) Contour Next Test Strips Strip See Rx Instructions .Route Qty: 100 1RF Rx Instructions: Check blood glucose 3 times a day as directed (DME) lancets [Lancets,Ultra Thin] Misc See Rx Instructions .Route Qty: 100 1RF Rx Instructions: Check blood glucose 3 times a day as directed pantoprazole 40 mg Tablet,Delayed Release (Dr/Ec) 40 mg PO BID 42 Days Qty: 84 0RF Continued trazodone 50 mg tablet 50 mg PO HS simvastatin 40 mg tablet 40 mg PO HS scopolamine base 1 mg over 3 days patch 3 day 1 mg transdermal .Q3DAYS PRN (Reason: TRAVELING) Changed insulin glargine [Lantus Solostar U-100 Insulin] 100 unit/mL (3 mL) insulin pen 5 unit SUBCUT HS Qty: 0 0RF Discharge Orders: Discharge Order (Routine); Ordered 10/02/24 Ordered By: Kristi Sánchez Admission Data Admit Date/Time: 09/23/24 19:17 Attending Provider: Kristi Sánchez I. Admit Provider: Siria Kasper Primary Care Provider: Roxanne Sanford Other Providers: Siria aKsper; Amaury Sanchez; Dat Pantoja; Roxanne Cuenca; Kiran Wood; Bhakti Murray; Jackson Rubio; Rosa Maria Mcdaniels; Andrea Eastman; Adriana Ragland; Tremaine Antonio; Chele Paz; Gigi Lomeli; Peter Arreaga; Darrius Baez; Lanie Sanchez; Brian Fountain; Travon Lyles; Edwin Vargas Other Interventions: Discharge Summary Assessment (RN) Last Done: 10/02/24 11:28
[2024-10-02 11:29] VITALS: BP 134/77; PULSE 74
[2024-10-05 01:42] LABS: Source URETER STONE
== END 2024-10-02 16:06 | disposition home or self-care (01) | DRG 659 ==
LOC: ED 15:18 → SUATTDRO 19:17 → 2S 19:17